=== PATIENT | male | born 1945 | race Caucasian/White ===

== ENCOUNTER 2016-06-14 10:28 | Inpatient (IN) | payer MEDICARE, OTHER ==
--- NOTE | ~2016-06-14 | CN ---
Consultation Report [facility] [address] [place]. [address] NAME: TARAN ADAMS JR : 45 STATUS : ADM IN PAT#: [id number] AGE: 70 ADM/REG DATE : 06/14/16 MR#: [id number] REPORT SERV DATE: 06/16/16 DICTATED BY: SAAD WOLF DATE: 06/16/16 REPORT STATUS : Draft TRANSCRIBED BY: MODL DATE: 06/16/16 CONSULTATION REPORT DATE OF CONSULTATION: 06/14/2016 REASON FOR CONSULTATION: Severe aortic stenosis, coronary artery disease, consideration for surgical therapy. CHIEF COMPLAINT: "I have valve problems and I felt bad yesterday." HISTORY OF PRESENT ILLNESS: This is a 70-year-old, very fit gentleman, who has known history of some aortic valve disease. He reports that he has known about a heart murmur for a long time. He has also prior history of stage 3 chronic kidney disease, followed by Dr. 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 On the day of admission, he reports that he awakened early that morning and felt unwell. He had some dizziness and while showering, he began to have some left shoulder and arm discomfort. This radiated into his chest and worsened overtime. He did not take anything for this. He did have associated shortness of breath, did not have any diaphoresis, nausea, or vomiting. EMS was activated and during transport, he was given nitroglycerin. He developed severe bradycardia and then asystole and was successfully resuscitated. He was taken urgently to the catheter finisher and inspector, and was found to have significant disease in the first diagonal of the LAD and also had mid LAD lesion of 45%. His circumflex showed ostial 40% lesion second obtuse marginal, which was small, showed 70% stenosis, and he had right PDA stenosis of 70%. At the time of his catheterization, the slip presser was unable to cross the aortic valve. His left ventricular function was mildly diminished with ejection fraction of 45%. His echocardiogram showed severe aortic stenosis and we were asked to see for provision of possible aortic valve replacement and bypass to the diagonal. PRIOR MEDICAL HISTORY: Significant for hypertension, hyperkalemia, stage 3 chronic kidney disease, cataracts, asthma, and hyperlipidemia. PRIOR SURGICAL HISTORY: Significant for excision of cataracts, bilateral rotator cuff repair, right elbow and left ankle surgeries as well as hip surgery. He has also had prior appendectomy. 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 ALLERGIES: HE IS LISTED NITROGLYCERIN AND DOG DANDER. MEDICATIONS: Losartan 100 mg p.o. daily, Zocor 40 mg p.o. at bedtime, coenzyme Q10 100 mg p.o. b.i.d., omega-3 630 mg 2 capsules p.o. b.i.d., glucosamine chondroitin twice daily, aspirin 325 mg p.o. at bedtime, supplemental testosterone injections weekly, Claritin 10 mg p.o. daily as needed, and Sigrid-C 500 mg p.o. b.i.d. Consultation Report [address] [place]. [address] NAME: TARAN ADAMS JR : 45 STATUS : ADM IN [facility]#: [id number] AGE: 70 ADM/REG DATE : 06/14/16 MR#: [id number] REPORT SERV DATE: 06/16/16 DICTATED BY: SAAD WOLF DATE: 06/16/16 REPORT STATUS : Draft TRANSCRIBED BY: DOE DATE: 06/16/16 REVIEW OF SYSTEMS: Essentially as above. FAMILY HISTORY: Significant for coronary artery disease in father and brother. Father had valvular disease as well. PHYSICAL EXAMINATION: GENERAL: He is a pleasant elderly white male, in no acute distress. VITAL SIGNS: Height is 180.34 cm. Weight 96 kg. Blood pressure 167/92, temperature 98.1, pulse 61 and regular, respirations 13, saturation 98% on room air. HEENT: Normocephalic, atraumatic. Pupils are equal, round, reactive to light and accommodation, sclerae clear, conjunctivae pink. No xanthelasma. Oral and buccal mucosa pink and moist and teeth is in good condition. Mallampati class 2 airway. NECK: Supple. No restricted range of motion. No carotid bruits to auscultation. No jugular venous distention. I do not palpate any lymphadenopathy. CHEST: Clear to auscultation. No use of accessory muscles. No chest wall tenderness. BREASTS: Not examined. CV: Regular rate and rhythm with aortic systolic murmur. He has palpable and symmetric central and peripheral pulses, no clubbing, cyanosis, or edema. ABDOMEN: Soft, nontender with normoactive bowel sounds. No hepatosplenomegaly. /RECTAL: Declined. MUSCULOSKELETAL: No kyphoscoliosis. No asymmetry. NEUROLOGIC: He is alert and oriented to day, date, place, and situation. Speech is clear, fluent, no focal neurologic deficits. Mood is appropriate. No tremors. SKIN, HAIR, AND NAILS: No lesions, masses, or rashes. He is tanned and has good hygiene. DATA: He has coronary arteriogram and echocardiogram, which I reviewed. His EKG shows sinus rhythm. Labs showed troponin I not elevated at 0.02. His CBC was unremarkable and BMP was remarkable for elevation of his creatinine of 1.61. IMPRESSION: Severe aortic stenosis and flow-limiting coronary artery disease in the first diagonal branch. We talked with the patient and his about possible coronary artery bypass grafting and aortic valve replacement. We talked about choice of valves between a tissue valve and mechanical valve and the patient prefers tissue valve. We talked about the operation, indications, benefits, and serious risks which include things like bleeding, need for blood or blood product transfusion and their attendant risks, damage to the kidneys including kidney failure and dialysis, damage to the liver, lungs, heart attack, stroke, abnormal heart rhythm, and even . The patient indicates his understanding. Using Society of Thoracic Surgeons' database for risk prediction, mortality risk was calculated at 2.295%, morbidity or mortality 18.255%, and this was discussed with the patient. Plan is for surgery on Thursday and the patient is agreeable to proceed. We appreciate the opportunity to participate in his care. DICTATED BY: Sha Fuentes N.P. Consultation Report [address] [place]. [address] NAME: BRYANTARAN KENYON WALSH : 45 STATUS : ADM IN [facility]#: [id number] AGE: 70 ADM/REG DATE : 06/14/16 MR#: [id number] REPORT SERV DATE: 06/16/16 DICTATED BY: SAAD WOLF DATE: 06/16/16 REPORT STATUS : Draft TRANSCRIBED BY: DOE DATE: 06/16/16 MSL/FERNL Saad Wolf M.D. / [id number] CC: Anahy Douglas Jr., M.D.
--- NOTE | ~2016-06-14 | HP ---
History And Physical [place] [id number] [facility] [place]. [address] NAME: TARAN ADAMS JR : 45 STATUS : ADM IN [facility]#: [id number] AGE: 70 ADM/REG DATE : 06/14/16 MR#: [id number] REPORT SERV DATE: 06/14/16 DICTATED BY: SEEMA AYALA JR. DATE: 06/14/16 REPORT STATUS : Draft TRANSCRIBED BY: DOE DATE: 06/14/16 DATE OF ADMISSION: 06/14/2016 CHIEF COMPLAINT: Chest pain and asystolic arrest. HISTORY OF PRESENT ILLNESS: Taran Adams is a 70-year-old white male, who is a patient Dr. Fischer. He has moderate calcific aortic stenosis, being followed medically. He has been in his usual state of health, exercising on an elliptical every morning. This morning, he was taking a shower when he had gradual onset of substernal chest pressure with shortness of breath. This was new, prompting an EMS call. The EMS gave a sublingual nitroglycerin en route. The patient developed asystole, requiring brief CPR. He then arose on his own without medical or mechanical intervention. The patient continues to have 1 or 2 out of 10 substernal chest pain. He had borderline ST elevation in 1 and aVL, not classic criteria for STEMI, but persistent symptoms. PAST MEDICAL HISTORY: Includes lung abscess 2-3 years ago, treated with antibiotics. He has a history of calcific aortic stenosis. He denies prior myocardial infarction, TIA or stroke. He has hypertension, mixed hyperlipidemia. ALLERGIES: INCLUDE A POSSIBLE INTOLERANCE TO NITROGLYCERIN NOTED ABOVE. CURRENT MEDICATIONS: Please see the home medication sheet, which was reviewed. SOCIAL HISTORY: The patient does not currently smoke, drink or use recreational drugs. FAMILY HISTORY: Negative for premature vascular events. REVIEW OF SYSTEMS: He denies recent fever or chills, bleeding diathesis, sudden weight gain or weight loss. Remainder as in HPI or negative. PHYSICAL EXAMINATION: PHYSICAL EXAMINATION: VITAL SIGNS: Blood pressure is 155/91, heart rate 61, and respirations 16. GENERAL: Anxious male, who is in no acute distress. HEENT: Anicteric, no scleral injection, no oral lesions. NECK: No JVD, supple, no bruits. LUNGS: Clear to auscultation. No hyperexpansion. CARDIOVASCULAR: Irregular rate and rhythm with 1 to 2 out of 6 systolic ejection murmur at the right upper sternal border. ABDOMEN: Soft, nontender. Normoactive bowel sounds, no hepatosplenomegaly. EXTREMITIES: No clubbing, cyanosis or edema. SKIN: No visible rashes. NEURO/PSY: Normal affect, alert and oriented x 3. History And Physical [address] [address] NAME: TARAN ADAMS JR : 45 STATUS : ADM IN [facility]#: [id number] AGE: 70 ADM/REG DATE : 06/14/16 MR#: [id number] REPORT SERV DATE: 06/14/16 DICTATED BY: SEEMA AYALA JR. DATE: 06/14/16 REPORT STATUS : Draft TRANSCRIBED BY: DOE DATE: 06/14/16 MEDICAL DECISION MAKIN. Chest pain. The patient is having persistent chest pain with an asystolic arrest post nitroglycerin. He has borderline ST elevation, not completely consistent with STEMI, but possibly concerning for injury pattern. Based upon his presentation of high risk, the risks and benefits of left heart catheterization, coronary angiography were explained, verbalized, and accepted. This is an emergency procedure. 2. Hypertension. We will adjust medicines as needed during this hospital stay. 3. Mixed hyperlipidemia. We will continue intensive statin therapy. 4. Aortic stenosis. We will check aortic valve gradients at the time of procedure. HADLEY/DOE Seema Ayala Jr., M.D. / [id number] CC: Evan Fischer M.D.
--- NOTE | ~2016-06-14 | OP ---
Record Of Operation [facility] [address] [place]. [address] NAME: TARAN ADAMS JR : 45 STATUS : ADM IN PAT#: [id number] AGE: 70 ADM/REG DATE : 06/14/16 MR#: [id number] REPORT SERV DATE: 06/29/16 DICTATED BY: SAI MCCLAIN DATE: 06/28/16 REPORT STATUS : Draft TRANSCRIBED BY: MODL DATE: 06/28/16 DATE OF PROCEDURE: 06/27/2016 PREOPERATIVE DIAGNOSIS: Acute kidney injury. POSTOPERATIVE DIAGNOSIS: Acute kidney injury. PROCEDURE: Right IJ PermCath. RN UNIT MANAGER: None. ANESTHESIA: MAC plus local. INDICATIONS: The patient is a 70-year-old gentleman who had cardiac surgery and has postoperative renal failure. He has been receiving dialysis via a left subclavian vein Vas- Cath. Thus, he was consented for intervention. DESCRIPTION OF PROCEDURE: After informed consent was obtained, the patient was taken to the operating room and placed in the supine position on the operating table. Monitored anesthesia was administered. The patient's right neck and chest were prepped and draped in the usual sterile fashion. Ultrasound-guided access was obtained to the right internal jugular vein. The ultrasound image was documented on the chart. I passed a wire centrally. I tunneled a 19-cm curved HemoSplit catheter from the right chest to the right neck. I inserted a peel-away sheath over the aforementioned wire using fluoroscopic guidance. I subsequently inserted the catheter into the peel-away sheath under fluoroscopy and peeled away the sheath. I confirmed that the catheter was not kinked and that it aspirated and flushed well. The right neck wound was closed. DIGITAL PRODUCT MANAGER/DOE Sai Mcclain M.D. / [id number] CC: Anahy Douglas Jr., M.D. Nathan Chamberlain, M.D.
--- NOTE | ~2016-06-14 | OP ---
Record Of Operation [facility] [address] [place]. [address] NAME: TARAN ADAMS JR : 45 STATUS : ADM IN PAT#: [id number] AGE: 70 ADM/REG DATE : 06/14/16 MR#: [id number] REPORT SERV DATE: 06/19/16 DICTATED BY: SAAD WOLF DATE: 06/18/16 REPORT STATUS : Draft TRANSCRIBED BY: MODL DATE: 06/18/16 DATE OF PROCEDURE: 06/18/2016 PREOPERATIVE DIAGNOSES: 1. Coronary artery disease with code ST-elevation myocardial infarction and angina. 2. Aortic valve stenosis. 3. Recent asystolic cardiac arrest with cardiopulmonary resuscitation. 4. Chronic kidney disease, stage III. 5. Hypertension. 6. Hyperlipidemia. POSTOPERATIVE DIAGNOSES: 1. Coronary artery disease with code ST-elevation myocardial infarction and angina. 2. Aortic valve stenosis. 3. Recent asystolic cardiac arrest with cardiopulmonary resuscitation. 4. Chronic kidney disease, stage III. 5. Hypertension. 6. Hyperlipidemia. PROCEDURE PERFORMED: 1. Urgent coronary artery bypass grafting x4, left internal mammary artery placed to left anterior descending, reverse saphenous vein graft placed to the first diagonal, reverse saphenous vein graft placed to the second obtuse marginal, reverse saphenous vein graft placed to the posterior descending artery. 2. Aortic valve replacement using a 27 mm pericardial valve (Magna Ease). 3. Placement of left subclavian vein. Dual lumen temporary hemodialysis catheter, percutaneous. 4. Endoscopic vein harvest, saphenous vein from the right leg. 5. Transesophageal echocardiography. SURGEON: Saad Wolf M.D. ASSISTANTS: Robert Bai, Shelia Cavazos, [facility], and Ashok Norwood. ANESTHESIA: General with Dr. Baljinder Feliz. INSTALLER METAL FLOORING: Marin Ayala M.D. INDICATIONS: This is a 70-year-old gentleman with a history of chronic kidney disease, who has known aortic valve stenosis and hypertension. He presented to [facility] after an episode of chest discomfort at home. En route, he was given nitroglycerin and had asystolic arrest with brief period of CPR and was successfully resuscitated. In the emergency room, he was diagnosed with a code STEMI and was still having angina when taken to the laborer tree tapping. There, he underwent the cardiac catheterization demonstrating significant three-vessel coronary artery disease. He also was found to have progression of aortic stenosis, and now severe aortic valve stenosis. Ventricular function was not assessed Record Of Operation [address] [address] NAME: TARAN ADAMS JR : 45 STATUS : ADM IN PAT#: [id number] AGE: 70 ADM/REG DATE : 06/14/16 MR#: [id number] REPORT SERV DATE: 06/19/16 DICTATED BY: SAAD WOLF DATE: 06/18/16 REPORT STATUS : Draft TRANSCRIBED BY: MODUlises DATE: 06/18/16 there, however, on echocardiography his ventricular function was preserved with an ejection fraction of greater than 50%. There was rather severe aortic valve stenosis. Valve area estimated I think to be less than 1 cm square. His aortic valve area was estimated at 0.75 cm square with a VTI ratio of 0.24. We were asked to see the patient possible urgent revascularization and aortic valve replacement. We discussed this operation with the patient and his family, and after lengthy discussion of the operations, indication, risks, and valve selection they wished to proceed. Predicted STS mortality of 2.3% morbidity, mortality of 18% were shared with the family. FINDINGS AT OPERATION: 1. Cross-clamp time of 123 minutes, total pump time 144 minutes. 2. The LAD was a 2 mm moderately diseased vessel. A 3 mm KEITH was anastomosed with good runoff. 3. The first diagonal was 2 mm moderately diseased. A 4.5 mm RSVG was anastomosed with good runoff. 4. The second obtuse marginal was 1.5 mm moderately diseased. A 4.5 mm RSVG was anastomosed with good runoff. 5. The posterior descending artery was 1.75 mm moderately diseased. A 4.5 mm RSVG was anastomosed with good runoff. 6. The vein quality was good and all grafts had good Doppler signal at the end of the case. 7. The aortic valve was bicuspid with very heavy calcification. There was fusion of the right and left coronary cusps and bulbous calcific disease extending to the annulus and into the myocardium around the right coronary cusp and onto the anterior leaflet of the mitral valve from the non and left coronary cusps and annulus. Coronary anatomy was normal. 8. The aortic valve was replaced using a 27 mm pericardial valve (Magna Ease). Eighteen Cor-Knots were utilized to secure the valve in place. 9. WOLF at the end of the operation demonstrated good ventricular function. Right ventricular contractility was estimated to be slightly reduced even preoperatively. The aortic valve prosthesis was well seated without perivalvular leak. There was mild mitral valve insufficiency. Pathologic specimens include aortic valve and calcifications. DESCRIPTION OF PROCEDURE: The patient was brought to the operating suite. General anesthesia was induced airway secured with an endotracheal tube. Lines secured by Anesthesia. Merchant catheter was placed. The patient's chest, abdomen, groin, and legs prepped with Hibiclens and ChloraPrep and draped with Ioban sterile sheets. Saphenous vein was harvested from the right leg using endoscopic technique. Briefly, the vein was cut directly down upon through a 2 cm incision placed at the medial aspect of the right knee. Then, using VasoView trocars, the vessel was dissected from the surrounding subcutaneous tissue and fat. The side branches were identified, ligated, divided with cautery. Once adequate length of vein had been dissected, a counter incision made up in the groin and in the lower leg where the vein was ligated, divided, and brought through the knee incision. The vein quality was good. The leg was made hemostatic and closed in layers with absorbable suture and skin closed in a subcuticular fashion. Record Of Operation [facility] [address] [facility] [place]. [address] NAME: TARAN ADAMS JR : 45 STATUS : ADM IN [facility]#: [id number] AGE: 70 ADM/REG DATE : 06/14/16 MR#: [id number] REPORT SERV DATE: 06/19/16 DICTATED BY: SAAD WOLF DATE: 06/18/16 REPORT STATUS : Draft TRANSCRIBED BY: MODL DATE: 06/18/16 WOLF probe was placed by Anesthesia and examination carried out as discussed above. Dr. Feliz and I discussed the findings of the aortic valve and absence of other surgically significant aortic valvular disease. A midline sternal incision made and the sternum opened with a saw. The left hemithorax was elevated and the endothoracic fascia was incised. Side branch of the HERACLIO were clipped and divided. Once the HERACLIO was completely dissected, the patient was anticoagulated with heparin and the chest tube placed in the left pleural cavity. The HERACLIO was clipped and divided distally. There was good flow through the HERACLIO and its pedicle was infiltrated with papaverine. Next, the Ryne retractor was placed in the pericardium opened from innominate vein. The diaphragm was T'd and tacked to sides of the chest wall. Cannulation pursestring sutures were placed and cannulation was carried out in routine manner. A retrograde cardioplegia cannula was placed in the coronary sinus. When all was in readiness, the patient was placed on cardiopulmonary bypass. The distal targets were marked out on the heart as described in the findings. Then, a heart support was placed. The aorta was crossclamped and initial dose cold blood cardioplegia solution was given in a combination of antegrade and retrograde fashion, then in a retrograde manner at 20 to 25-minute intervals during remainder of the crossclamp period. Following the first dose of cardioplegia, the heart was positioned for the PDA graft. Arteriotomy was made, the vein graft was trimmed and anastomosed it with 7-0 Prolene. The vein graft was measured to the right side of the ascending aorta where it was divided. We then positioned heart for the second obtuse marginal graft. Another arteriotomy was made. The vein graft was trimmed and anastomosed with 7-0 Prolene. This vein graft was measured back to the left side of the ascending aorta where it was divided. Next, another dose of cardioplegia was given. We then positioned the heart for the diagonal graft. Arteriotomy was made, and the vein graft was trimmed and anastomosed with 7-0 Prolene. This vein graft was measured back to the left side of the ascending aorta where it was divided. Then, the heart was positioned for the LAD graft. Arteriotomy was made in the mid vessel LAD. The HERACLIO was brought out of the left chest through a notch in the pericardium over the pulmonary artery. The HERACLIO was opened and anastomosed to the LAD with running suture of 8-0 Prolene. The endothoracic fascia was tacked to epicardium. Another dose of cardioplegia was given and the heart support was removed. We then turned our attention towards the aortic valve. An LV vent was then placed through the right superior pulmonary vein and directed into the left ventricle through the mitral valve and secured. A hockey-stick type aortotomy incision was made. The aortic valve was exposed. As discussed above, this was of a bicuspid valve with fusion of the right and left coronary cusps. There were heavily calcifications of the aortic valve leaflets and of the annulus. The right and left main coronary ostia were in normal anatomic position. We then excised the valve leaflets and debrided the annulus of all calcific material. Once this was completed, we irrigated the ascending aorta and left ventricle copiously with iced saline to remove any particulate matter. The valve was sized and a 27 mm pericardial valve was selected (Magna Ease). An interrupted horizontal mattress sutures of pledgeted 2-0 Tycron Record Of Operation [facility] [address] [facility] [place]. [address] NAME: TARAN ADAMS JR : 45 STATUS : ADM IN PAT#: [id number] AGE: 70 ADM/REG DATE : 06/14/16 MR#: [id number] REPORT SERV DATE: 06/19/16 DICTATED BY: SAAD WOLF DATE: 06/18/16 REPORT STATUS : Draft TRANSCRIBED BY: DOE DATE: 06/18/16 were placed circumferentially about the aortic valve annulus. Pledgets were on the ventricular side. The sutures were passed through the sewing cuff of the valve prosthesis. This was lowered into position and each of the sutures individually secured and divided using a Cor-Knot device. A total of 18 Cor-Knots were utilized. The valve appeared to be well seated without coronary obstruction. Warming was begun. The aortotomy incision was then closed in a two-layer fashion with running pledgeted suture of 5-0 Prolene. Next, proximal aortotomy incisions of 5 mm were made for each of the vein grafts. The proximal end of each vein graft was then anastomosed to these sites with running sutures of 6-0 Prolene. The patient was placed in Trendelenburg and a final dose of warm blood cardioplegia given in a retrograde fashion. Ventricular and atrial pacing wires were placed. Following the last dose cardioplegia and deairing of the aorta, the aortic cross clamp was removed. The distal and proximal anastomoses were inspected and made hemostatic. Doppler demonstrated good flow through the grafts. After short period of rest, low-dose milrinone was bolused and begun on a drip. Ventilation was begun. The heart was allowed to beat and was paced in AV sequential fashion at a rate of 80. When the heart demonstrated good contractility, it was allowed to fill and eject. De-airing was monitored with WOLF. When deairing was completed, the LV vent was removed and these pursestring sutures tied. The ascending aortic vent was likewise removed and these pursestring sutures tied and reinforced. The patient was then weaned from cardiopulmonary bypass with inotropic support. The venous cannulas were removed and these pursestring sutures tied. WOLF examination demonstrated good ventricular function. The aortic valve prosthesis was well seated without perivalvular leak. There was very minimal mitral valve insufficiency. Protamine was administered by Anesthesia and following a period of hemodynamic stability, the aortic cannula was removed and these pursestring sutures tied and reinforced. The patient continued to do well and chest was irrigated copiously with saline. Meticulous hemostasis was obtained. Hemasorb was placed along the cut edge of the sternum. Once hemostasis was assured, the pericardium was draped over the anterior surface of the heart and tacked into position. Doppler demonstrated good flow through the grafts following protamine administration. Then, chest tubes were placed and sternum reapproximated with eight sternal wires. The clavipectoral fascia and linea alba closed with #1 Stratafix as was the subcutaneous tissue. The skin was closed in a subcuticular fashion. Then, the left subclavian area was anesthetized with lidocaine. A needle was placed in the left subclavian vein and a guidewire placed through the needle into the right heart. This tract was dilated using a modified Seldinger technique. Then, a 14.5-Maltese dual-lumen temporary dialysis catheter placed in the left subclavian vein and secured to the skin. The catheter was flushed with heparinized saline. Record Of Operation [facility] [address] [facility] [place]. [address] NAME: TARAN ADAMS : 45 STATUS : ADM IN [facility]#: [id number] AGE: 70 ADM/REG DATE : 06/14/16 MR#: [id number] REPORT SERV DATE: 06/19/16 DICTATED BY: SAAD WOLF DATE: 06/18/16 REPORT STATUS : Draft TRANSCRIBED BY: MODL DATE: 06/18/16 The patient tolerated the procedure well. There were no complications. Sponge needle counts were correct. DISPOSITION: The patient was left intubated, sedated, and transported to the Intensive Care Unit in stable condition. JOE/DOE Saad Wolf M.D. / [id number] CC: Anahy Douglas Jr., MD
--- NOTE | ~2016-06-14 | DS ---
Discharge Summary [facility] [address] [place]. [address] NAME: TARAN ADAMS JR : 45 STATUS : DIS IN PAT#: [id number] AGE: 70 ADM/REG DATE : 06/14/16 MR#: [id number] REPORT SERV DATE: 07/09/16 DICTATED BY: MARIN AYALA JR. DATE: 07/09/16 REPORT STATUS : Draft TRANSCRIBED BY: DOE DATE: 07/09/16 Data Collection from hospitalization DISCHARGE DIAGNOSES: 1. Coronary artery disease with code ST-elevation myocardial infarction and angina, status post coronary artery bypass grafting. 2. End-stage renal disease, on hemodialysis. 3. Hypertension. 4. Hyperlipidemia. 5. Asthma. 6. History of head and neck squamous cell carcinoma. 7. EtOH abuse. 8. Arthritis. 9. Aortic stenosis. 10.Cataracts. 11.Asystolic arrest. CONSULTATIONS: 1. Arturo Espinoza M.D. 2. Anastacio Wolf M.D. 3. Sai Mcclain M.D. PROCEDURES PERFORMED: 1. Catheterization and percutaneous coronary intervention on 06/14/2016. 2. Urgent coronary artery bypass grafting x4 with left internal mammary artery to the left anterior descending artery, reverse saphenous vein graft placed to the first diagonal, reverse saphenous vein graft placed to the second obtuse marginal, reverse saphenous vein graft placed to the posterior descending artery; aortic valve replacement using a 27 mm pericardial valve (Magna Ease); placement of left subclavian vein dual-lumen temporary hemodialysis catheter - percutaneous; endoscopic vein harvest of the saphenous vein from the right leg; transesophageal echocardiography on 06/18/2016. 3. Right IJ PermCath placement on 06/27/2016. 4. Carotid blood flow study on 06/18/2016. 5. Dialysis catheter check on 06/20/2016. PATHOLOGY: Aortic valve - calcific aortic valvular disease (no vegetations identified). MEDICATIONS: Cordarone 200 mg daily, Viraj Aspirin 81 mg daily, Lipitor 40 mg at bedtime, Coreg 6.25 mg twice a day, CoQ10 100 mg twice a day, MSM capsule 500 mg twice a day, glucosamine 1000 mg twice a day, Claritin 10 mg daily as needed, saw palmetto one capsule twice a day, omega-3 two capsules twice a day, chondroitin 500 mg twice a day, Sigrid-C 500 mg twice a day, and Coumadin 5 mg daily. CONDITION AT DISCHARGE: Stable. DISPOSITION: The patient was discharged home on a low-sodium, low-cholesterol, cardiac diet with activities as instructed. He would follow up with Sha Fuentes on 07/31/[address] Evan Fischer on 07/28/2016. He would follow up with Dr. Jimi Higuera as Discharge Summary [address] [address] NAME: TARAN ADAMS JR : 45 STATUS : DIS IN PAT#: [id number] AGE: 70 ADM/REG DATE : 06/14/16 MR#: [id number] REPORT SERV DATE: 07/09/16 DICTATED BY: MARIN AYALA JR. DATE: 07/09/16 REPORT STATUS : Draft TRANSCRIBED BY: DOE DATE: 07/09/16 instructed. He would follow up with Dr. Taran Dozier on 07/10/2016. He would follow up at the [facility] on 07/04/2016. He would follow up at [facility] on 07/02/2016. HOSPITAL COURSE: A 70-year-old man who is a patient of Dr. Fischer. He has moderate calcific aortic stenosis and is being followed medically. He had been in his usual state of health, exercising on an elliptical every morning. On the morning of this admission, he was taking a shower when he had the gradual onset of substernal chest pressure with shortness of breath. This was new and EMS was called. EMS gave a sublingual nitroglycerin en route. He developed asystole and required brief CPR. He then aroused on his own without medical or mechanical intervention. He continued to have 1 or 2/10 substernal chest pain. He had borderline ST elevation in I and aVL, which was not classic criteria for STEMI, but persistent symptoms. The patient had borderline ST elevation that was not completely consistent with STEMI, but possibly concerning for an injury pattern. It was felt that he would need to undergo cardiac catheterization emergently. He was admitted to the hospital at this time for further evaluation and treatment. Upon admission, blood pressure medications would be adjusted as needed. His intensive statin therapy was continued. We were going to check his aortic valve gradients at the time of procedure for aortic stenosis. He was taken to the cardiac concrete mixing plant laborer where he underwent the above-mentioned procedure. He tolerated this well, and there were no complications. He was seen in consultation by Dr. Artuor Espinoza regarding his chronic kidney disease. The patient has a history of stage III chronic kidney disease. Creatinine level was 1.91. Gentle IV fluids were being given. A.m. labs would be obtained. He was also seen by Dr. Anastacio Wolf regarding severe aortic stenosis and coronary artery disease and consideration for surgical therapy. Cardiac catheterization had revealed significant disease in the first diagonal of the LAD and also mid LAD lesion of 45%. His circumflex showed ostial 40% lesion, second obtuse marginal which was small and showed 70% stenosis, and he had right PDA stenosis of 70%. At the time of his catheterization, we were unable to cross the aortic valve. His left ventricular function was mildly diminished with the ejection fraction of 45%. Echocardiogram showed severe aortic stenosis. It was felt that the patient would need to undergo possible aortic valve replacement and coronary artery bypass grafting. The following day, urinalysis was going to be checked. He had no chest pain or shortness of breath. His catheterization site was stable. Low-dose amlodipine was added for his hypertension. On 06/16/2016, he had no chest pain or shortness of breath. He was in a normal sinus rhythm. IV heparin was being given. Creatinine level remained stable at 1.88. Plans were being made to proceed with surgical intervention. On 06/18/2016, he was taken to the operating room by Dr. Wolf where he underwent the above-mentioned procedure. He had undergone a carotid blood flow study earlier in the day. The patient tolerated this procedure well, and there were no complications. On postop day #1, his lungs were clear. Chest x-ray showed bilateral lung interstitial edema as well as a questionable tiny left apical pneumothorax. His incisions looked okay. He had no edema. He is going to remain in the ICU at this time. White blood cell count was 21. Medial and left pleural chest tubes were removed. CRRT was going to began. Creatinine had increased to 2.99. He had been given Phenergan and Zofran for his nausea. Bumex drip had been started. On 06/20/2016, he did have some pain in his left chest with deep inspiration. He had a shallow inspiratory effort. He remained in a normal sinus rhythm. He had minimal urine Discharge Summary [facility] [address] [facility] [place]. [address] NAME: TARAN ADAMS JR : 45 STATUS : DIS IN PAT#: [id number] AGE: 70 ADM/REG DATE : 06/14/16 MR#: [id number] REPORT SERV DATE: 07/09/16 DICTATED BY: MARIN AYALA JR. DATE: 07/09/16 REPORT STATUS : Draft TRANSCRIBED BY: MODUlises DATE: 07/09/16 output with Bumex. He had trace edema. White count was 19.9. He was now off pressors. His dialysis catheter that had been placed was checked and was in good position. The patient had been placed on milrinone. CRRT therapy was begun. He was now off Levophed. BiPAP would be used as needed. Supportive care continued. On 06/22/2016, he developed brief atrial fibrillation, but went back into a sinus rhythm. The next day, he did develop some constipation. Chest x-ray showed improvement. There was no significant effusion. There was no pneumothorax. He had increasing urine output. He did have some sternal pain. Aspirin, Coreg, and atorvastatin were continued. IV Bumex continued. He was going to be transitioned to hemodialysis as needed. On 06/23/2016, he was in a normal sinus rhythm. He had no chest pain. He was in no distress. He is now off CRRT. Chest x-ray showed increased left base atelectasis. On 06/24/2016, the patient was nonoliguric with IV Bumex. Vas-Cath remained in place. He was very fatigued. He had some issues with nitroglycerin ointment. We were going to marcia this as intolerant on the chart. It was felt that he would need PermCath insertion. Warfarin was held. He had no significant edema. The patient said he felt depressed about the hemodialysis. On 06/27/2016, he was in no acute distress. He was up sitting in a chair. He was seen by Dr. Sai Mcclain. The patient had been receiving dialysis via a left subclavian vein Vas-Cath. It was felt that he needed right IJ PermCath placement. He agreed to proceed. He was taken to the operating room by Dr. Mcclain where he underwent the above-mentioned procedure. He tolerated this well, and there were no complications. On 06/28/2016, arrangements were made for outpatient hemodialysis to be performed. He said he had a rough night. He had been impacted and constipated and then developed loose stools. His incisions looked okay. Over the next couple of days, discharge planning was performed. He began to feel better. He was up and around. INR level was 1.8. He was in a sinus rhythm at this time. PermCath was stable. On 06/30/2016, hemodialysis therapy was performed. His INR level was 2.1. He was in no acute distress. Discharge instructions were given. Due to his improved and stable condition, he was discharged home with the above-stated instructions. Information collected by: Cielo Cobb I submit the above information as my discharge summary. DEV/DOE Marin Ayala Jr., M.D. / [id number] CC: Anahy Douglas Jr., M.D. Sachin V Phade, M.D. Stuart G Ginther, M.D. James Zellner, M.D.
--- NOTE | ~2016-06-14 | CN ---
Consultation Report [facility] [address] [place]. [address] NAME: TARAN ADAMS JR : 45 STATUS : ADM IN PAT#: [id number] AGE: 70 ADM/REG DATE : 06/14/16 MR#: [id number] REPORT SERV DATE: 06/15/16 DICTATED BY: ARTURO ESPINOZA DATE: 06/14/16 REPORT STATUS : Draft TRANSCRIBED BY: DOE DATE: 06/14/16 NEPHROLOGY CONSULT. DATE OF CONSULTATION: CHIEF COMPLAINT: CKD. HISTORY OF PRESENT ILLNESS: The patient is a 70-year-old gentleman with past medical history stage III CKD (Dr. Higuera, creatinine 2.0 on 02/2016), moderate calcified aortic stenosis, hypertension, presented with acute onset of substernal chest pain and shortness of breath. En route, EMS gave him nitroglycerin. He went asystole and had brief CPR. He was evaluated by Dr. Ayala and found to have STEMI with class 4 angina. He was emergently taken to the clinical laboratory aides teacher. Volume contrast is not known to me at this time. He was found to have ostial 20% lesion at LMCA of 4 mm in length. The first diagonal of the LAD showed an ostial 80% stenosis of 8 mm in length. He was also noted to have a mid LAD lesion of 45%. Left circumflex showed ostial lesion of 40%. The second obtuse marginal showed a 70% stenosis of 4 mm in length. The mid circumflex was 30%. The RCA had a distal subsection of 40% stenosis in the proximal subsection stenosis in the right PDA of 70%. Repeat echocardiogram was completed, results not known to me at this time, but he did have a known history of moderate calcified aortic stenosis by echocardiogram in 01/2016. PAST MEDICAL HISTORY/PAST SURGICAL HISTORY: Moderate calcified aortic stenosis, hypertension, hyperkalemia, stage III CKD with creatinine 2.0. SOCIAL HISTORY: . No tobacco, alcohol, or drugs. FAMILY MEDICAL HISTORY: No known kidney disease. REVIEW OF SYSTEMS: Complete review of systems done negative, otherwise stated in HPI. ALLERGIES: NOW TO NITROGLYCERIN SECONDARY TO ASYSTOLE. HOME MEDICATIONS: Reviewed. Please see MAR. Current medications include Cozaar 50 mg daily, Zocor 40 mg daily, Co Q enzyme 10 mg, aspirin 325 mg, atropine p.r.n. PHYSICAL EXAMINATION: VITAL SIGNS: Temperature is 98.2, pulse is 63, blood pressure is 130/77, 96% on 2 L. GENERAL: He is in no apparent distress. He answers questions appropriately. NEUROLOGIC: He is alert and oriented x3. Gross motor intact. PSYCH: Appropriate, cooperative. HEENT: Normocephalic. No scleral icterus. NECK: No JVD. Trachea midline. CARDIOVASCULAR: Regular rate and rhythm. No gallops, rubs appreciated, but noted to have Consultation Report [address] [place]. [address] NAME: TARAN ADAMS JR : 45 STATUS : ADM IN PAT#: [id number] AGE: 70 ADM/REG DATE : 06/14/16 MR#: [id number] REPORT SERV DATE: 06/15/16 DICTATED BY: ARTURO ESPINOZA DATE: 06/14/16 REPORT STATUS : Draft TRANSCRIBED BY: MODL DATE: 06/14/16 systolic murmur at left right upper sternal border, left lower sternal border, and apex. ABDOMEN: Soft, nontender, nondistended. Positive bowel sounds. EXTREMITIES: No peripheral edema. NECK: Trachea is midline. No lymphadenopathy. SKIN: No petechiae or purpura. VASCULAR: +2 radial and dorsal pedal pulses bilaterally. LABORATORY DATA: Sodium is 144, potassium 4.6, chloride 116, CO2 is 25, BUN 29, creatinine is 1.91, glucose is 16. White blood cells 6.4, hemoglobin is 13.6, platelets are 254. Echocardiogram is pending. ASSESSMENT: 1. ST-segment elevation myocardial infarction with asystole, status post nitroglycerin. 2. Multivessel disease by cardiac cath. 3. Calcified aortic stenosis. 4. Stage III chronic kidney disease, baseline creatinine 2.0 in 02/2016. Office labs were not available at the time of this dictation. PLAN: 1. Gentle IV fluids. 2. A.m. labs. 3. Possibility of CABG, aortic valve replacement in the future. Cardiovascular Thoracic Surgery has been consulted. (Dr. Wolf). Note that the patient may have an elevated creatinine tomorrow in associated with his asystole event in transport in the setting of STEMI. He also received some contrast. Family updated at bedside. SGG/MODL Arturo Espinoza M.D. / [id number] CC: Marin Ayala Jr., M.D.
[~2016-06-14 10:28] MED LIST: COQ10100 MG PO; COSAMIN DS1 TAB PO; COZAAR100 MG PO; DIOV160 PO; DIOV80 PO; FLAXSEED OIL1000 MG PO; IBU400 PO; LOP25 PO; M-CLEAR WC PO; MSM500 MG PO; MULTIPLE VIT PO; PROMEGA PO; VENTOLIN HFA INH; VIB100 PO; VITC500 PO; ZOCOR40 PO; [UNRECOGNIZED DRUG - OTHER]
[2016-06-14] MEDS ORDERED: CO Q-10100 MG PO (10:37)
[2016-06-14] MEDS ORDERED: COZAAR100 MG PO (10:37)
[2016-06-14] MEDS ORDERED: ZOCOR40 PO (10:37)
[2016-06-14] MEDS ORDERED: GLUCOSAMINEPO PO (10:38)
[2016-06-14] MEDS ORDERED: OMEGA PO (10:38)
[2016-06-14] MEDS ORDERED: CHONDROITIN PO (10:38)
[2016-06-14] MEDS ORDERED: MSM500 MG PO (10:38)
[2016-06-14] MEDS ORDERED: ASABAYER PO (10:39)
[2016-06-14] MEDS ORDERED: CLARIT10 PO (10:39)
[2016-06-14] MEDS ORDERED: ESTER C 500 MG PO (10:39)
[2016-06-14] MEDS ORDERED: SAW PALMETT2 PO (10:39)
[2016-06-14] MEDS ORDERED: TESTOSTERONE IJ (10:40)
[2016-06-14 10:53] LABS: BASOPHILS 0.5 %; BASOPHILS ABSOLUTE 0.03 10/3/uL (0.0-0.16); EOSINOPHILS 8.8 %; EOSINOPHILS ABSOLUTE 0.56 10/3/uL (0.0-0.53); HEMATOCRIT 41.9 % (40.0-51.0); HEMOGLOBIN 13.6 g/dL (13.6-17.8); IMMATURE GRANULOCYTES 0.2 %; IMMATURE GRANULOCYTES ABSOLUTE 0.01 10/3/uL (0.0-0.11); LYMPHOCYTES 29.8 %; LYMPHOCYTES ABSOLUTE 1.89 10/3/uL (0.67-4.30); MEAN CORPUS HGB CONC 32.5 g/dL (32.0-36.0); MEAN CORPUSCULAR HEMOGLOB 28.1 pg (26.0-34.0); MONOCYTES ABSOLUTE 0.51 10/3/uL (0.21-1.20); NEUTROPHILS 52.7 %; NEUTROPHILS ABSOLUTE 3.35 10/3/uL (2.02-8.40); RBC DISTRIBUTION WIDTH 14.9 % (12.0-16.0); RED CELL COUNT 4.84 10/6/uL (4.7-6.1)
[2016-06-14 10:54] LABS: MANUAL DIFF NO %; MEAN CORPUSCULAR VOLUME 86.6 fL (80-100); PLATELET COUNT 254 10/3/uL (150-400); WHITE BLOOD CELLS 6.4 10/3/uL (4.5-10.5)
[2016-06-14 11:01] LABS: INTERNATIONAL NORMAL RATI 1.1 UNITS (-); PARTIAL THROMBO TIME 24.6 SEC (22.5-37.2); PROTIME (NOT ORD) 13.6 SEC (12.0-14.5)
[2016-06-14 11:09] LABS: CALCIUM, SERUM 8.5 MG/DL (8.5-10.4); CHEST PAIN PROFILE TAT 0 Hrs 22 Mins; CHLORIDE, SERUM 110 MMOL/L (96-112); CO2 (CARBON DIOXIDE) 25 MMOL/L (24-34); CREATININE 1.91 MG/DL (0.70-1.30); GFR AFRICAN AMERICAN 40 ML/MIN (>=60); GFR NON AFRICAN AMERICAN 35 ML/MIN (>=60); GLUCOSE, SERUM 111 MG/DL (60-99); POTASSIUM, SERUM 4.6 MMOL/L (3.5-5.3); SODIUM, SERUM 144 MMOL/L (135-148); TROPONIN I <0.02 NG/ML (<0.05)
[2016-06-14 11:13] LABS: BUN (BLOOD UREA NITROGEN) 29 MG/DL (6-23)
[2016-06-14 14:28] LABS: CPK 73 U/L (0-200)
[2016-06-14 14:29] LABS: CK-MB 1.6 NG/ML
[2016-06-14 20:00] LABS: CK-MB 6.2 NG/ML
[2016-06-14 20:01] LABS: CKMB INDEX (NOT ORD) 6.4
[2016-06-15 01:54] LABS: BASOPHILS 0.2 %; BASOPHILS ABSOLUTE 0.02 10/3/uL (0.0-0.16); EOSINOPHILS 4.7 %; EOSINOPHILS ABSOLUTE 0.39 10/3/uL (0.0-0.53); HEMATOCRIT 41.1 % (40.0-51.0); HEMOGLOBIN 13.7 g/dL (13.6-17.8); IMMATURE GRANULOCYTES 0.2 %; IMMATURE GRANULOCYTES ABSOLUTE 0.02 10/3/uL (0.0-0.11); LYMPHOCYTES 18.9 %; LYMPHOCYTES ABSOLUTE 1.55 10/3/uL (0.67-4.30); MEAN CORPUS HGB CONC 33.3 g/dL (32.0-36.0); MEAN CORPUSCULAR HEMOGLOB 29.1 pg (26.0-34.0); MEAN CORPUSCULAR VOLUME 87.4 fL (80-100); MEAN PLATELET VOLUME 9.1 fL (9.2-13.0); MONOCYTES 9.1 %; MONOCYTES ABSOLUTE 0.75 10/3/uL (0.21-1.20); NEUTROPHILS 66.9 %; NEUTROPHILS ABSOLUTE 5.49 10/3/uL (2.02-8.40); PLATELET COUNT 249 10/3/uL (150-400); RBC DISTRIBUTION WIDTH 14.8 % (12.0-16.0); WHITE BLOOD CELLS 8.2 10/3/uL (4.5-10.5)
[2016-06-15 01:55] LABS: MANUAL DIFF NO %
[2016-06-15 02:11] LABS: CALCIUM, SERUM 7.6 MG/DL (8.5-10.4); CHLORIDE, SERUM 111 MMOL/L (96-112); CK-MB 17.6 NG/ML; CO2 (CARBON DIOXIDE) 22 MMOL/L (24-34); CREATININE 1.61 MG/DL (0.70-1.30); GFR AFRICAN AMERICAN 49 ML/MIN (>=60); GFR NON AFRICAN AMERICAN 43 ML/MIN (>=60); GLUCOSE, SERUM 90 MG/DL (60-99); POTASSIUM, SERUM 4.1 MMOL/L (3.5-5.3); SODIUM, SERUM 144 MMOL/L (135-148)
[2016-06-15 02:17] LABS: BUN (BLOOD UREA NITROGEN) 24 MG/DL (6-23); CKMB INDEX (NOT ORD) 10.3; CPK 171 U/L (0-200)
[2016-06-15 10:34] LABS: ASCORBIC ACID (UR NOT ORDER) 20 (NEG); BILIRUBIN, URINE NEGATIVE (NEG); KETONE, URINE TRACE MG/DL (NEG); LEUKOCYTE ESTERASE(NOT OR NEG (NEG); WBC (NOT ORDERED) (RFLEX) < 1 (0-5)
[2016-06-16 04:56] LABS: BASOPHILS 0.2 %; BASOPHILS ABSOLUTE 0.02 10/3/uL (0.0-0.16); HEMOGLOBIN 14.3 g/dL (13.6-17.8); IMMATURE GRANULOCYTES 0.2 %; IMMATURE GRANULOCYTES ABSOLUTE 0.02 10/3/uL (0.0-0.11); LYMPHOCYTES 17.8 %; LYMPHOCYTES ABSOLUTE 1.48 10/3/uL (0.67-4.30); MEAN CORPUS HGB CONC 33.3 g/dL (32.0-36.0); MEAN CORPUSCULAR HEMOGLOB 29.1 pg (26.0-34.0); MEAN CORPUSCULAR VOLUME 87.4 fL (80-100); MEAN PLATELET VOLUME 9.4 fL (9.2-13.0); MONOCYTES 13.1 %; MONOCYTES ABSOLUTE 1.09 10/3/uL (0.21-1.20); NEUTROPHILS 62.7 %; NEUTROPHILS ABSOLUTE 5.19 10/3/uL (2.02-8.40); PLATELET COUNT 260 10/3/uL (150-400); RBC DISTRIBUTION WIDTH 14.8 % (12.0-16.0); RED CELL COUNT 4.92 10/6/uL (4.7-6.1); WHITE BLOOD CELLS 8.3 10/3/uL (4.5-10.5)
[2016-06-16 05:05] LABS: MANUAL DIFF NO %
[2016-06-16 05:10] LABS: BUN (BLOOD UREA NITROGEN) 24 MG/DL (6-23); CALCIUM, SERUM 8.2 MG/DL (8.5-10.4); CHLORIDE, SERUM 109 MMOL/L (96-112); CO2 (CARBON DIOXIDE) 23 MMOL/L (24-34); CREATININE 1.88 MG/DL (0.70-1.30); GFR AFRICAN AMERICAN 41 ML/MIN (>=60); GFR NON AFRICAN AMERICAN 35 ML/MIN (>=60); GLUCOSE, SERUM 91 MG/DL (60-99); PHOSPHORUS, SERUM 2.6 MG/DL (2.5-4.5); POTASSIUM, SERUM 4.7 MMOL/L (3.5-5.3); SODIUM, SERUM 141 MMOL/L (135-148)
[2016-06-17 08:13] LABS: HEMOGLOBIN 14.5 g/dL (13.6-17.8); MEAN CORPUS HGB CONC 32.2 g/dL (32.0-36.0); MEAN PLATELET VOLUME 9.2 fL (9.2-13.0); PLATELET COUNT 265 10/3/uL (150-400); RBC DISTRIBUTION WIDTH 15.1 % (12.0-16.0); RED CELL COUNT 5.17 10/6/uL (4.7-6.1); WHITE BLOOD CELLS 8.6 10/3/uL (4.5-10.5)
[2016-06-17 08:20] LABS: MANUAL DIFF YES %
[2016-06-17 08:26] LABS: INTERNATIONAL NORMAL RATI 1.1 UNITS (-)
[2016-06-17 08:33] LABS: A/G RATIO 0.9 (0.7-1.9); ALBUMIN 3.3 G/DL (3.5-5.0); ALKALINE PHOSPHATASE 49 U/L (45-117); BUN (BLOOD UREA NITROGEN) 20 MG/DL (6-23); CALCIUM, SERUM 8.2 MG/DL (8.5-10.4); CHLORIDE, SERUM 107 MMOL/L (96-112); CO2 (CARBON DIOXIDE) 26 MMOL/L (24-34); CREATININE 1.85 MG/DL (0.70-1.30); GFR AFRICAN AMERICAN 42 ML/MIN (>=60); GFR NON AFRICAN AMERICAN 36 ML/MIN (>=60); GLOBULIN 3.7 G/DL (2.5-4.1); GLUCOSE, SERUM 91 MG/DL (60-99); PHOSPHORUS, SERUM 3.2 MG/DL (2.5-4.5); POTASSIUM, SERUM 4.2 MMOL/L (3.5-5.3); SGOT(AST) 22 U/L (5-40); SGPT(ALT) 23 U/L (5-65); SODIUM, SERUM 143 MMOL/L (135-148); TOTAL BILIRUBIN 0.7 MG/DL (0-1.2)
[2016-06-18 06:21] LABS: INTERNATIONAL NORMAL RATI 1.1 UNITS (-); PROTIME (NOT ORD) 14.2 SEC (12.0-14.5)
[2016-06-18 06:23] LABS: BASOPHILS 0.4 %; BASOPHILS ABSOLUTE 0.03 10/3/uL (0.0-0.16); EOSINOPHILS 7.2 %; EOSINOPHILS ABSOLUTE 0.58 10/3/uL (0.0-0.53); HEMATOCRIT 41.4 % (40.0-51.0); HEMOGLOBIN 13.6 g/dL (13.6-17.8); IMMATURE GRANULOCYTES 0.2 %; IMMATURE GRANULOCYTES ABSOLUTE 0.02 10/3/uL (0.0-0.11); LYMPHOCYTES 20.3 %; LYMPHOCYTES ABSOLUTE 1.65 10/3/uL (0.67-4.30); MEAN CORPUS HGB CONC 32.9 g/dL (32.0-36.0); MEAN CORPUSCULAR HEMOGLOB 29.1 pg (26.0-34.0); MEAN CORPUSCULAR VOLUME 88.7 fL (80-100); MEAN PLATELET VOLUME 9.2 fL (9.2-13.0); MONOCYTES 10.4 %; MONOCYTES ABSOLUTE 0.84 10/3/uL (0.21-1.20); NEUTROPHILS 61.5 %; NEUTROPHILS ABSOLUTE 4.99 10/3/uL (2.02-8.40); PARTIAL THROMBO TIME 90.7 SEC (22.5-37.2); PLATELET COUNT 241 10/3/uL (150-400); RBC DISTRIBUTION WIDTH 15.1 % (12.0-16.0); RED CELL COUNT 4.67 10/6/uL (4.7-6.1); WHITE BLOOD CELLS 8.1 10/3/uL (4.5-10.5)
[2016-06-18 06:27] LABS: MANUAL DIFF NO %
[2016-06-18 06:46] LABS: ALBUMIN 2.9 G/DL (3.5-5.0); BUN (BLOOD UREA NITROGEN) 21 MG/DL (6-23); CALCIUM, SERUM 7.8 MG/DL (8.5-10.4); CHLORIDE, SERUM 111 MMOL/L (96-112); CREATININE 2.02 MG/DL (0.70-1.30); GFR AFRICAN AMERICAN 38 ML/MIN (>=60); GFR NON AFRICAN AMERICAN 32 ML/MIN (>=60); GLUCOSE, SERUM 98 MG/DL (60-99); PHOSPHORUS, SERUM 3.5 MG/DL (2.5-4.5); POTASSIUM, SERUM 4.3 MMOL/L (3.5-5.3); SODIUM, SERUM 143 MMOL/L (135-148)
[2016-06-18 06:47] LABS: CO2 (CARBON DIOXIDE) 21 MMOL/L (24-34)
[2016-06-18 17:09] LABS: BE (BASE EXCESS) -5.2 MEQ/L (0 +/- 2.5); CARBOXYHEMOGLOBIN 0.3 % (0-3); HCO3 (ACTUAL BICARBONATE) 19.7 MEQ/L (23-27); HEMOBLOGIN CONTENT 14.7 G/DL (14-18); INSTRUMENT SERIAL # 11843; METHEMOGLOBIN 0.6 % (0-3); MODE SIMV; O2 CONTENT 20.7 VOL% (18-24); OPERATOR ID 18642; PCO2 (CO2 TENSION) 36 MMHG (35-45); PO2 (O2 TENSION) 203 MMHG (79-93); PRESSURE SUPPORT 0 cm.H2O; SAMPLE Arterial; TIDAL VOLUME 700 ML; pH 7.35 (7.37-7.43)
[2016-06-18 17:40] LABS: HEMOGLOBIN 13.8 g/dL (13.6-17.8); PLATELET COUNT 180 10/3/uL (150-400)
[2016-06-18 17:46] LABS: INTERNATIONAL NORMAL RATI 1.4 UNITS (-); PARTIAL THROMBO TIME 38.4 SEC (22.5-37.2)
[2016-06-18 17:50] LABS: BUN (BLOOD UREA NITROGEN) 21 MG/DL (6-23); CHLORIDE, SERUM 113 MMOL/L (96-112); CO2 (CARBON DIOXIDE) 22 MMOL/L (24-34); CREATININE 2.25 MG/DL (0.70-1.30); GFR AFRICAN AMERICAN 33 ML/MIN (>=60); GFR NON AFRICAN AMERICAN 28 ML/MIN (>=60); GLUCOSE, SERUM 98 MG/DL (60-99); POTASSIUM, SERUM 3.6 MMOL/L (3.5-5.3); PROTIME (NOT ORD) 16.9 SEC (12.0-14.5); SODIUM, SERUM 146 MMOL/L (135-148)
[2016-06-18 17:51] LABS: CALCIUM, SERUM 8.9 MG/DL (8.5-10.4)
[2016-06-18 21:05] LABS: BE (BASE EXCESS) -11.4 MEQ/L (0 +/- 2.5); CARBOXYHEMOGLOBIN 0.4 % (0-3); DEVICE NC; HCO3 (ACTUAL BICARBONATE) 13.7 MEQ/L (23-27); INSTRUMENT SERIAL # 11843; METHEMOGLOBIN 0.5 % (0-3); O2 CONTENT 19.8 VOL% (18-24); OPERATOR ID 13744; PCO2 (CO2 TENSION) 30 MMHG (35-45); PO2 (O2 TENSION) 88 MMHG (79-93); SAMPLE Arterial; pH 7.29 (7.37-7.43)
[2016-06-18 22:43] LABS: HEMATOCRIT 40.6 % (40.0-51.0); HEMOGLOBIN 13.6 g/dL (13.6-17.8)
[2016-06-18 22:54] LABS: BUN (BLOOD UREA NITROGEN) 26 MG/DL (6-23); CALCIUM, SERUM 8.3 MG/DL (8.5-10.4); CHLORIDE, SERUM 111 MMOL/L (96-112); CO2 (CARBON DIOXIDE) 22 MMOL/L (24-34); CREATININE 2.51 MG/DL (0.70-1.30); GFR AFRICAN AMERICAN 29 ML/MIN (>=60); GFR NON AFRICAN AMERICAN 25 ML/MIN (>=60); GLUCOSE, SERUM 154 MG/DL (60-99); POTASSIUM, SERUM 4.2 MMOL/L (3.5-5.3); SODIUM, SERUM 145 MMOL/L (135-148)
[2016-06-19 03:46] LABS: BASOPHILS 0 %; BASOPHILS ABSOLUTE 0.01 10/3/uL (0.0-0.16); EOSINOPHILS 0 %; HEMATOCRIT 38.3 % (40.0-51.0); HEMOGLOBIN 12.6 g/dL (13.6-17.8); IMMATURE GRANULOCYTES 0.2 %; IMMATURE GRANULOCYTES ABSOLUTE 0.05 10/3/uL (0.0-0.11); LYMPHOCYTES 3.6 %; LYMPHOCYTES ABSOLUTE 0.76 10/3/uL (0.67-4.30); MEAN CORPUS HGB CONC 32.9 g/dL (32.0-36.0); MEAN CORPUSCULAR HEMOGLOB 28.1 pg (26.0-34.0); MEAN PLATELET VOLUME 10.1 fL (9.2-13.0); MONOCYTES 6.4 %; MONOCYTES ABSOLUTE 1.34 10/3/uL (0.21-1.20); NEUTROPHILS 89.8 %; NEUTROPHILS ABSOLUTE 18.83 10/3/uL (2.02-8.40); PLATELET COUNT 212 10/3/uL (150-400); RBC DISTRIBUTION WIDTH 14.4 % (12.0-16.0); RED CELL COUNT 4.48 10/6/uL (4.7-6.1)
[2016-06-19 03:48] LABS: MANUAL DIFF NO %; MEAN CORPUSCULAR VOLUME 85.5 fL (80-100)
[2016-06-19 04:07] LABS: ALBUMIN 3.2 G/DL (3.5-5.0); BUN (BLOOD UREA NITROGEN) 29 MG/DL (6-23); CHLORIDE, SERUM 111 MMOL/L (96-112); CO2 (CARBON DIOXIDE) 23 MMOL/L (24-34); CREATININE 2.99 MG/DL (0.70-1.30); GFR AFRICAN AMERICAN 23 ML/MIN (>=60); GFR NON AFRICAN AMERICAN 20 ML/MIN (>=60); GLUCOSE, SERUM 134 MG/DL (60-99); PHOSPHORUS, SERUM 3.2 MG/DL (2.5-4.5); POTASSIUM, SERUM 3.7 MMOL/L (3.5-5.3); SODIUM, SERUM 147 MMOL/L (135-148)
[2016-06-19 04:34] LABS: BE (BASE EXCESS) -4.2 MEQ/L (0 +/- 2.5); CARBOXYHEMOGLOBIN 0.5 % (0-3); DEVICE VM; HCO3 (ACTUAL BICARBONATE) 22.3 MEQ/L (23-27); HEMOBLOGIN CONTENT 13.6 G/DL (14-18); INSTRUMENT SERIAL # 11843; METHEMOGLOBIN 0.7 % (0-3); O2 CONTENT 18.2 VOL% (18-24); OPERATOR ID 13744; PCO2 (CO2 TENSION) 46 MMHG (35-45); PO2 (O2 TENSION) 89 MMHG (79-93); SAMPLE Arterial
[2016-06-19 09:09] LABS: ALBUMIN 3.4 G/DL (3.5-5.0); DIRECT BILIRUBIN 0.1 MG/DL (0.0-0.4); INDIRECT BILIRUBIN(NOT ORDER) 0.3 MG/DL (0.1-0.9); TOTAL BILIRUBIN 0.4 MG/DL (0-1.2); TOTAL PROTEIN 6.1 G/DL (6.0-8.5)
[2016-06-19 12:06] LABS: HEMATOCRIT 37.9 % (40.0-51.0); HEMOGLOBIN 12.6 g/dL (13.6-17.8); MEAN CORPUS HGB CONC 33.2 g/dL (32.0-36.0); MEAN CORPUSCULAR HEMOGLOB 28.3 pg (26.0-34.0); MEAN CORPUSCULAR VOLUME 85.2 fL (80-100); MEAN PLATELET VOLUME 10.4 fL (9.2-13.0); PLATELET COUNT 218 10/3/uL (150-400); RBC DISTRIBUTION WIDTH 14.6 % (12.0-16.0); RED CELL COUNT 4.45 10/6/uL (4.7-6.1)
[2016-06-19 12:07] LABS: MANUAL DIFF YES %; WHITE BLOOD CELLS 25.6 10/3/uL (4.5-10.5)
[2016-06-19 12:30] LABS: LYMPHOCYTES 2 %; LYMPHOCYTES ABSOLUTE (CALC) 0.51 10/3/uL (0.67-4.30); MONOCYTES 6 %; MONOCYTES ABSOLUTE (CALC) 1.54 10/3/uL (0.21-1.20); NEUTROPHILS ABSOLUTE (CALC) 23.55 10/3/uL (2.02-8.40); PLATELET ESTIMATE ADQ (ADEQUATE); RBC MORPHOLOGY NORM (NORMAL); SEGMENTED NEUTROPHIL (0) 92 %; TOTAL NUCLEATED CELLS 100
[2016-06-19 16:29] LABS: HEMATOCRIT 34.4 % (40.0-51.0); HEMOGLOBIN 11.5 g/dL (13.6-17.8)
[2016-06-19 16:34] LABS: POTASSIUM, SERUM 4.2 MMOL/L (3.5-5.3)
[2016-06-19 18:22] LABS: CALCIUM, SERUM 8.3 MG/DL (8.5-10.4); CHLORIDE, SERUM 104 MMOL/L (96-112); CO2 (CARBON DIOXIDE) 24 MMOL/L (24-34)
[2016-06-19 18:24] LABS: BUN (BLOOD UREA NITROGEN) 36 MG/DL (6-23); CREATININE 4.22 MG/DL (0.70-1.30); GFR AFRICAN AMERICAN 15 ML/MIN (>=60); GFR NON AFRICAN AMERICAN 13 ML/MIN (>=60); GLUCOSE, SERUM 82 MG/DL (60-99); SODIUM, SERUM 139 MMOL/L (135-148)
[2016-06-20 03:35] LABS: BASOPHILS 0.1 %; BASOPHILS ABSOLUTE 0.01 10/3/uL (0.0-0.16); EOSINOPHILS 0 %; HEMATOCRIT 32.9 % (40.0-51.0); HEMOGLOBIN 11.1 g/dL (13.6-17.8); IMMATURE GRANULOCYTES 0.5 %; LYMPHOCYTES 4.9 %; LYMPHOCYTES ABSOLUTE 0.98 10/3/uL (0.67-4.30); MEAN CORPUS HGB CONC 33.7 g/dL (32.0-36.0); MEAN CORPUSCULAR HEMOGLOB 28.8 pg (26.0-34.0); MEAN CORPUSCULAR VOLUME 85.5 fL (80-100); MEAN PLATELET VOLUME 9.1 fL (9.2-13.0); MONOCYTES 11.4 %; MONOCYTES ABSOLUTE 2.26 10/3/uL (0.21-1.20); NEUTROPHILS 83.1 %; NEUTROPHILS ABSOLUTE 16.53 10/3/uL (2.02-8.40); RBC DISTRIBUTION WIDTH 14.6 % (12.0-16.0); RED CELL COUNT 3.85 10/6/uL (4.7-6.1); WHITE BLOOD CELLS 19.9 10/3/uL (4.5-10.5)
[2016-06-20 03:37] LABS: MANUAL DIFF NO %; PLATELET COUNT 147 10/3/uL (150-400)
[2016-06-20 03:50] LABS: ALBUMIN 3.1 G/DL (3.5-5.0); CALCIUM, SERUM 7.8 MG/DL (8.5-10.4); CHLORIDE, SERUM 101 MMOL/L (96-112); CO2 (CARBON DIOXIDE) 25 MMOL/L (24-34); POTASSIUM, SERUM 4.5 MMOL/L (3.5-5.3); SODIUM, SERUM 138 MMOL/L (135-148)
[2016-06-20 03:58] LABS: BUN (BLOOD UREA NITROGEN) 44 MG/DL (6-23); CREATININE 5.42 MG/DL (0.70-1.30); GFR AFRICAN AMERICAN 11 ML/MIN (>=60); GFR NON AFRICAN AMERICAN 10 ML/MIN (>=60); GLUCOSE, SERUM 171 MG/DL (60-99); PHOSPHORUS, SERUM 6.5 MG/DL (2.5-4.5)
[2016-06-20 09:05] LABS: BE (BASE EXCESS) -3.2 MEQ/L (0 +/- 2.5); CARBOXYHEMOGLOBIN 0.1 % (0-3); DEVICE NC; HCO3 (ACTUAL BICARBONATE) 23.3 MEQ/L (23-27); HEMOBLOGIN CONTENT 12.5 G/DL (14-18); INSTRUMENT SERIAL # 11843; METHEMOGLOBIN 0.6 % (0-3); O2 CONTENT 16.3 VOL% (18-24); OPERATOR ID 19104; PCO2 (CO2 TENSION) 48 MMHG (35-45); PO2 (O2 TENSION) 75 MMHG (79-93); SAMPLE Arterial; pH 7.31 (7.37-7.43)
[2016-06-20 09:29] LABS: A/G RATIO 1.1 (0.7-1.9); ALBUMIN 3.2 G/DL (3.5-5.0); ALKALINE PHOSPHATASE 41 U/L (45-117); BUN (BLOOD UREA NITROGEN) 45 MG/DL (6-23); CALCIUM, SERUM 7.9 MG/DL (8.5-10.4); CHLORIDE, SERUM 99 MMOL/L (96-112); CO2 (CARBON DIOXIDE) 25 MMOL/L (24-34); GLUCOSE, SERUM 190 MG/DL (60-99); PHOSPHORUS, SERUM 7.3 MG/DL (2.5-4.5); POTASSIUM, SERUM 4.6 MMOL/L (3.5-5.3); SGOT(AST) 33 U/L (5-40); SGPT(ALT) 12 U/L (5-65); SODIUM, SERUM 136 MMOL/L (135-148); TOTAL BILIRUBIN 0.4 MG/DL (0-1.2)
[2016-06-20 09:32] LABS: CREATININE 6.13 MG/DL (0.70-1.30); GFR AFRICAN AMERICAN 10 ML/MIN (>=60); GFR NON AFRICAN AMERICAN 8 ML/MIN (>=60); GLOBULIN 2.8 G/DL (2.5-4.1)
[2016-06-20 22:53] LABS: BASOPHILS 0.1 %; BASOPHILS ABSOLUTE 0.02 10/3/uL (0.0-0.16); EOSINOPHILS 0 %; HEMATOCRIT 32.8 % (40.0-51.0); IMMATURE GRANULOCYTES 0.7 %; IMMATURE GRANULOCYTES ABSOLUTE 0.15 10/3/uL (0.0-0.11); LYMPHOCYTES ABSOLUTE 0.67 10/3/uL (0.67-4.30); MEAN CORPUS HGB CONC 33.5 g/dL (32.0-36.0); MEAN CORPUSCULAR HEMOGLOB 29.1 pg (26.0-34.0); MEAN CORPUSCULAR VOLUME 86.8 fL (80-100); MEAN PLATELET VOLUME 9.6 fL (9.2-13.0); MONOCYTES 12.9 %; MONOCYTES ABSOLUTE 2.87 10/3/uL (0.21-1.20); NEUTROPHILS 83.3 %; NEUTROPHILS ABSOLUTE 18.61 10/3/uL (2.02-8.40); PLATELET COUNT 137 10/3/uL (150-400); RED CELL COUNT 3.78 10/6/uL (4.7-6.1); WHITE BLOOD CELLS 22.3 10/3/uL (4.5-10.5)
[2016-06-20 22:54] LABS: MANUAL DIFF NO %
[2016-06-20 22:58] LABS: BUN (BLOOD UREA NITROGEN) 33 MG/DL (6-23); CHLORIDE, SERUM 103 MMOL/L (96-112); CO2 (CARBON DIOXIDE) 23 MMOL/L (24-34); CREATININE 4.89 MG/DL (0.70-1.30); GFR AFRICAN AMERICAN 13 ML/MIN (>=60); GFR NON AFRICAN AMERICAN 11 ML/MIN (>=60); GLUCOSE, SERUM 151 MG/DL (60-99); POTASSIUM, SERUM 4.5 MMOL/L (3.5-5.3); SODIUM, SERUM 138 MMOL/L (135-148)
[2016-06-20 22:59] LABS: CALCIUM, SERUM 5.9 MG/DL (8.5-10.4)
[2016-06-21 04:00] LABS: BASOPHILS 0.1 %; BASOPHILS ABSOLUTE 0.01 10/3/uL (0.0-0.16); EOSINOPHILS 0 %; HEMATOCRIT 31.6 % (40.0-51.0); HEMOGLOBIN 10.6 g/dL (13.6-17.8); IMMATURE GRANULOCYTES 0.5 %; IMMATURE GRANULOCYTES ABSOLUTE 0.09 10/3/uL (0.0-0.11); LYMPHOCYTES 4.4 %; LYMPHOCYTES ABSOLUTE 0.83 10/3/uL (0.67-4.30); MEAN CORPUS HGB CONC 33.5 g/dL (32.0-36.0); MEAN CORPUSCULAR HEMOGLOB 29.2 pg (26.0-34.0); MEAN CORPUSCULAR VOLUME 87.1 fL (80-100); MEAN PLATELET VOLUME 9.5 fL (9.2-13.0); MONOCYTES 11.1 %; NEUTROPHILS 83.9 %; NEUTROPHILS ABSOLUTE 15.89 10/3/uL (2.02-8.40); PLATELET COUNT 123 10/3/uL (150-400); RED CELL COUNT 3.63 10/6/uL (4.7-6.1); WHITE BLOOD CELLS 18.9 10/3/uL (4.5-10.5)
[2016-06-21 04:01] LABS: MANUAL DIFF NO %
[2016-06-21 04:21] LABS: CHLORIDE, SERUM 102 MMOL/L (96-112); CO2 (CARBON DIOXIDE) 23 MMOL/L (24-34); GLUCOSE, SERUM 157 MG/DL (60-99); POTASSIUM, SERUM 4.5 MMOL/L (3.5-5.3); SODIUM, SERUM 137 MMOL/L (135-148)
[2016-06-21 04:22] LABS: BUN (BLOOD UREA NITROGEN) 28 MG/DL (6-23); CALCIUM, SERUM 6.2 MG/DL (8.5-10.4); CREATININE 4.25 MG/DL (0.70-1.30); GFR AFRICAN AMERICAN 15 ML/MIN (>=60); GFR NON AFRICAN AMERICAN 13 ML/MIN (>=60); PHOSPHORUS, SERUM 3.5 MG/DL (2.5-4.5)
[2016-06-21 05:13] LABS: PROCALCITONIN 1.61 ng/mL (<0.5)
[2016-06-21 06:51] LABS: BE (BASE EXCESS) -4.9 MEQ/L (0 +/- 2.5); CARBOXYHEMOGLOBIN 0.3 % (0-3); DEVICE NC; HCO3 (ACTUAL BICARBONATE) 19.9 MEQ/L (23-27); HEMOBLOGIN CONTENT 10.9 G/DL (14-18); INSTRUMENT SERIAL # 11843; METHEMOGLOBIN 0.5 % (0-3); O2 CONTENT 14.8 VOL% (18-24); OPERATOR ID 32193; PCO2 (CO2 TENSION) 36 MMHG (35-45); PO2 (O2 TENSION) 96 MMHG (79-93); SAMPLE Arterial; pH 7.36 (7.37-7.43)
[2016-06-21 10:23] LABS: BASOPHILS 0.1 %; BASOPHILS ABSOLUTE 0.01 10/3/uL (0.0-0.16); EOSINOPHILS 0.1 %; EOSINOPHILS ABSOLUTE 0.01 10/3/uL (0.0-0.53); HEMATOCRIT 30.1 % (40.0-51.0); HEMOGLOBIN 9.9 g/dL (13.6-17.8); IMMATURE GRANULOCYTES 0.3 %; IMMATURE GRANULOCYTES ABSOLUTE 0.04 10/3/uL (0.0-0.11); LYMPHOCYTES 3.6 %; LYMPHOCYTES ABSOLUTE 0.54 10/3/uL (0.67-4.30); MEAN CORPUS HGB CONC 32.9 g/dL (32.0-36.0); MEAN CORPUSCULAR HEMOGLOB 28.3 pg (26.0-34.0); MEAN PLATELET VOLUME 9.8 fL (9.2-13.0); MONOCYTES 10.5 %; MONOCYTES ABSOLUTE 1.59 10/3/uL (0.21-1.20); NEUTROPHILS 85.4 %; NEUTROPHILS ABSOLUTE 12.98 10/3/uL (2.02-8.40); PLATELET COUNT 110 10/3/uL (150-400); RBC DISTRIBUTION WIDTH 15.2 % (12.0-16.0); WHITE BLOOD CELLS 15.2 10/3/uL (4.5-10.5)
[2016-06-21 10:24] LABS: MANUAL DIFF NO %
[2016-06-21 10:25] LABS: CHLORIDE, SERUM 105 MMOL/L (96-112); CO2 (CARBON DIOXIDE) 24 MMOL/L (24-34); CREATININE 3.77 MG/DL (0.70-1.30); GFR AFRICAN AMERICAN 18 ML/MIN (>=60); GFR NON AFRICAN AMERICAN 15 ML/MIN (>=60); GLUCOSE, SERUM 165 MG/DL (60-99); POTASSIUM, SERUM 4.3 MMOL/L (3.5-5.3); SODIUM, SERUM 140 MMOL/L (135-148)
[2016-06-21 10:27] LABS: BUN (BLOOD UREA NITROGEN) 24 MG/DL (6-23)
[2016-06-21 16:39] LABS: BASOPHILS 0.1 %; BASOPHILS ABSOLUTE 0.01 10/3/uL (0.0-0.16); EOSINOPHILS 0.2 %; EOSINOPHILS ABSOLUTE 0.03 10/3/uL (0.0-0.53); HEMATOCRIT 29.8 % (40.0-51.0); HEMOGLOBIN 9.9 g/dL (13.6-17.8); IMMATURE GRANULOCYTES 0.2 %; IMMATURE GRANULOCYTES ABSOLUTE 0.03 10/3/uL (0.0-0.11); LYMPHOCYTES 4.4 %; LYMPHOCYTES ABSOLUTE 0.64 10/3/uL (0.67-4.30); MEAN CORPUS HGB CONC 33.2 g/dL (32.0-36.0); MEAN CORPUSCULAR HEMOGLOB 28.6 pg (26.0-34.0); MEAN CORPUSCULAR VOLUME 86.1 fL (80-100); MEAN PLATELET VOLUME 9.8 fL (9.2-13.0); MONOCYTES 12.6 %; MONOCYTES ABSOLUTE 1.82 10/3/uL (0.21-1.20); NEUTROPHILS 82.5 %; NEUTROPHILS ABSOLUTE 11.88 10/3/uL (2.02-8.40); PLATELET COUNT 121 10/3/uL (150-400); RBC DISTRIBUTION WIDTH 15.3 % (12.0-16.0); RED CELL COUNT 3.46 10/6/uL (4.7-6.1); WHITE BLOOD CELLS 14.4 10/3/uL (4.5-10.5)
[2016-06-21 16:40] LABS: MANUAL DIFF NO %
[2016-06-21 16:52] LABS: BUN (BLOOD UREA NITROGEN) 21 MG/DL (6-23); CALCIUM, SERUM 7.1 MG/DL (8.5-10.4); CHLORIDE, SERUM 103 MMOL/L (96-112); CO2 (CARBON DIOXIDE) 24 MMOL/L (24-34); POTASSIUM, SERUM 4.2 MMOL/L (3.5-5.3); SODIUM, SERUM 138 MMOL/L (135-148)
[2016-06-21 16:53] LABS: CREATININE 3.15 MG/DL (0.70-1.30); GFR AFRICAN AMERICAN 22 ML/MIN (>=60); GFR NON AFRICAN AMERICAN 19 ML/MIN (>=60); GLUCOSE, SERUM 131 MG/DL (60-99); PHOSPHORUS, SERUM 2.5 MG/DL (2.5-4.5)
[2016-06-21 22:53] LABS: BASOPHILS 0.1 %; BASOPHILS ABSOLUTE 0.01 10/3/uL (0.0-0.16); EOSINOPHILS 0.5 %; EOSINOPHILS ABSOLUTE 0.06 10/3/uL (0.0-0.53); HEMATOCRIT 28.1 % (40.0-51.0); HEMOGLOBIN 9.4 g/dL (13.6-17.8); IMMATURE GRANULOCYTES 0.3 %; IMMATURE GRANULOCYTES ABSOLUTE 0.04 10/3/uL (0.0-0.11); LYMPHOCYTES ABSOLUTE 0.53 10/3/uL (0.67-4.30); MEAN CORPUS HGB CONC 33.5 g/dL (32.0-36.0); MEAN CORPUSCULAR HEMOGLOB 28.9 pg (26.0-34.0); MEAN CORPUSCULAR VOLUME 86.5 fL (80-100); MEAN PLATELET VOLUME 9.9 fL (9.2-13.0); MONOCYTES 12.5 %; MONOCYTES ABSOLUTE 1.65 10/3/uL (0.21-1.20); NEUTROPHILS 82.6 %; NEUTROPHILS ABSOLUTE 10.92 10/3/uL (2.02-8.40); PLATELET COUNT 126 10/3/uL (150-400); RBC DISTRIBUTION WIDTH 15.3 % (12.0-16.0); RED CELL COUNT 3.25 10/6/uL (4.7-6.1); WHITE BLOOD CELLS 13.2 10/3/uL (4.5-10.5)
[2016-06-21 22:54] LABS: MANUAL DIFF NO %
[2016-06-21 23:03] LABS: BUN (BLOOD UREA NITROGEN) 19 MG/DL (6-23); CALCIUM, SERUM 7.2 MG/DL (8.5-10.4); CHLORIDE, SERUM 103 MMOL/L (96-112); CO2 (CARBON DIOXIDE) 25 MMOL/L (24-34); CREATININE 2.94 MG/DL (0.70-1.30); GFR AFRICAN AMERICAN 24 ML/MIN (>=60); GFR NON AFRICAN AMERICAN 21 ML/MIN (>=60); GLUCOSE, SERUM 136 MG/DL (60-99); SODIUM, SERUM 140 MMOL/L (135-148)
[2016-06-22 01:12] LABS: PHOSPHORUS, SERUM 2.6 MG/DL (2.5-4.5)
[2016-06-22 03:32] LABS: BE (BASE EXCESS) -3.4 MEQ/L (0 +/- 2.5); CARBOXYHEMOGLOBIN 0.3 % (0-3); DEVICE NC; HCO3 (ACTUAL BICARBONATE) 21.4 MEQ/L (23-27); INSTRUMENT SERIAL # 11843; METHEMOGLOBIN 0.5 % (0-3); O2 CONTENT 14.7 VOL% (18-24); OPERATOR ID 32193; PCO2 (CO2 TENSION) 37 MMHG (35-45); PO2 (O2 TENSION) 83 MMHG (79-93); SAMPLE Arterial; pH 7.38 (7.37-7.43)
[2016-06-22 04:19] LABS: BASOPHILS 0.1 %; BASOPHILS ABSOLUTE 0.01 10/3/uL (0.0-0.16); EOSINOPHILS 0.7 %; EOSINOPHILS ABSOLUTE 0.09 10/3/uL (0.0-0.53); HEMOGLOBIN 9.7 g/dL (13.6-17.8); IMMATURE GRANULOCYTES 0.4 %; IMMATURE GRANULOCYTES ABSOLUTE 0.05 10/3/uL (0.0-0.11); LYMPHOCYTES 6.7 %; LYMPHOCYTES ABSOLUTE 0.82 10/3/uL (0.67-4.30); MANUAL DIFF NO %; MEAN CORPUS HGB CONC 33.4 g/dL (32.0-36.0); MEAN CORPUSCULAR HEMOGLOB 29.2 pg (26.0-34.0); MEAN CORPUSCULAR VOLUME 87.3 fL (80-100); MEAN PLATELET VOLUME 9.2 fL (9.2-13.0); MONOCYTES 14.9 %; MONOCYTES ABSOLUTE 1.82 10/3/uL (0.21-1.20); NEUTROPHILS 77.2 %; NEUTROPHILS ABSOLUTE 9.46 10/3/uL (2.02-8.40); PLATELET COUNT 124 10/3/uL (150-400); RBC DISTRIBUTION WIDTH 15.3 % (12.0-16.0); RED CELL COUNT 3.32 10/6/uL (4.7-6.1); WHITE BLOOD CELLS 12.3 10/3/uL (4.5-10.5)
[2016-06-22 04:30] LABS: BUN (BLOOD UREA NITROGEN) 18 MG/DL (6-23); CALCIUM, SERUM 7.2 MG/DL (8.5-10.4); CHLORIDE, SERUM 103 MMOL/L (96-112); CO2 (CARBON DIOXIDE) 23 MMOL/L (24-34); CREATININE 2.69 MG/DL (0.70-1.30); GFR AFRICAN AMERICAN 27 ML/MIN (>=60); GFR NON AFRICAN AMERICAN 23 ML/MIN (>=60); GLUCOSE, SERUM 124 MG/DL (60-99); PHOSPHORUS, SERUM 2.4 MG/DL (2.5-4.5); POTASSIUM, SERUM 3.8 MMOL/L (3.5-5.3); SODIUM, SERUM 141 MMOL/L (135-148)
[2016-06-22 10:54] LABS: BASOPHILS 0.1 %; BASOPHILS ABSOLUTE 0.01 10/3/uL (0.0-0.16); EOSINOPHILS 1.3 %; EOSINOPHILS ABSOLUTE 0.16 10/3/uL (0.0-0.53); HEMATOCRIT 29.5 % (40.0-51.0); HEMOGLOBIN 9.6 g/dL (13.6-17.8); IMMATURE GRANULOCYTES 0.2 %; IMMATURE GRANULOCYTES ABSOLUTE 0.02 10/3/uL (0.0-0.11); LYMPHOCYTES 4.8 %; LYMPHOCYTES ABSOLUTE 0.58 10/3/uL (0.67-4.30); MEAN CORPUS HGB CONC 32.5 g/dL (32.0-36.0); MEAN CORPUSCULAR HEMOGLOB 28.1 pg (26.0-34.0); MEAN CORPUSCULAR VOLUME 86.3 fL (80-100); MEAN PLATELET VOLUME 9.6 fL (9.2-13.0); MONOCYTES 15.1 %; MONOCYTES ABSOLUTE 1.83 10/3/uL (0.21-1.20); NEUTROPHILS 78.5 %; NEUTROPHILS ABSOLUTE 9.53 10/3/uL (2.02-8.40); PLATELET COUNT 146 10/3/uL (150-400); RBC DISTRIBUTION WIDTH 15.5 % (12.0-16.0); RED CELL COUNT 3.42 10/6/uL (4.7-6.1); WHITE BLOOD CELLS 12.1 10/3/uL (4.5-10.5)
[2016-06-22 10:57] LABS: MANUAL DIFF NO %
[2016-06-22 11:06] LABS: BUN (BLOOD UREA NITROGEN) 16 MG/DL (6-23); CALCIUM, SERUM 7.4 MG/DL (8.5-10.4); CHLORIDE, SERUM 103 MMOL/L (96-112); CO2 (CARBON DIOXIDE) 25 MMOL/L (24-34); GFR AFRICAN AMERICAN 29 ML/MIN (>=60); GFR NON AFRICAN AMERICAN 25 ML/MIN (>=60); GLUCOSE, SERUM 138 MG/DL (60-99); POTASSIUM, SERUM 3.9 MMOL/L (3.5-5.3); SODIUM, SERUM 139 MMOL/L (135-148)
[2016-06-22 17:55] LABS: BASOPHILS 0.1 %; BASOPHILS ABSOLUTE 0.01 10/3/uL (0.0-0.16); EOSINOPHILS 1.4 %; EOSINOPHILS ABSOLUTE 0.18 10/3/uL (0.0-0.53); HEMATOCRIT 29.8 % (40.0-51.0); HEMOGLOBIN 9.7 g/dL (13.6-17.8); IMMATURE GRANULOCYTES 0.2 %; IMMATURE GRANULOCYTES ABSOLUTE 0.02 10/3/uL (0.0-0.11); LYMPHOCYTES 10.5 %; MEAN CORPUS HGB CONC 32.6 g/dL (32.0-36.0); MEAN CORPUSCULAR VOLUME 86.1 fL (80-100); MEAN PLATELET VOLUME 9.2 fL (9.2-13.0); MONOCYTES 6.8 %; MONOCYTES ABSOLUTE 0.84 10/3/uL (0.21-1.20); NEUTROPHILS ABSOLUTE 10.08 10/3/uL (2.02-8.40); PLATELET COUNT 170 10/3/uL (150-400); RBC DISTRIBUTION WIDTH 15.5 % (12.0-16.0); RED CELL COUNT 3.46 10/6/uL (4.7-6.1); WHITE BLOOD CELLS 12.4 10/3/uL (4.5-10.5)
[2016-06-22 17:58] LABS: MANUAL DIFF NO %
[2016-06-22 18:15] LABS: BUN (BLOOD UREA NITROGEN) 17 MG/DL (6-23); CALCIUM, SERUM 7.7 MG/DL (8.5-10.4); CHLORIDE, SERUM 104 MMOL/L (96-112); CO2 (CARBON DIOXIDE) 23 MMOL/L (24-34); CREATININE 2.39 MG/DL (0.70-1.30); GFR AFRICAN AMERICAN 31 ML/MIN (>=60); GFR NON AFRICAN AMERICAN 26 ML/MIN (>=60); GLUCOSE, SERUM 152 MG/DL (60-99); PHOSPHORUS, SERUM 1.8 MG/DL (2.5-4.5); POTASSIUM, SERUM 3.8 MMOL/L (3.5-5.3); SODIUM, SERUM 138 MMOL/L (135-148)
[2016-06-22 21:55] LABS: BASOPHILS 0.2 %; BASOPHILS ABSOLUTE 0.02 10/3/uL (0.0-0.16); EOSINOPHILS ABSOLUTE 0.12 10/3/uL (0.0-0.53); HEMATOCRIT 29.1 % (40.0-51.0); HEMOGLOBIN 9.4 g/dL (13.6-17.8); IMMATURE GRANULOCYTES 0.2 %; IMMATURE GRANULOCYTES ABSOLUTE 0.03 10/3/uL (0.0-0.11); LYMPHOCYTES 10.5 %; LYMPHOCYTES ABSOLUTE 1.28 10/3/uL (0.67-4.30); MEAN CORPUS HGB CONC 32.3 g/dL (32.0-36.0); MEAN CORPUSCULAR HEMOGLOB 28.2 pg (26.0-34.0); MEAN CORPUSCULAR VOLUME 87.4 fL (80-100); MEAN PLATELET VOLUME 9.3 fL (9.2-13.0); MONOCYTES 8.5 %; MONOCYTES ABSOLUTE 1.04 10/3/uL (0.21-1.20); NEUTROPHILS 79.6 %; NEUTROPHILS ABSOLUTE 9.71 10/3/uL (2.02-8.40); PLATELET COUNT 165 10/3/uL (150-400); RBC DISTRIBUTION WIDTH 15.4 % (12.0-16.0); RED CELL COUNT 3.33 10/6/uL (4.7-6.1); WHITE BLOOD CELLS 12.2 10/3/uL (4.5-10.5)
[2016-06-22 21:56] LABS: MANUAL DIFF NO %
[2016-06-22 22:09] LABS: BUN (BLOOD UREA NITROGEN) 16 MG/DL (6-23); CALCIUM, SERUM 7.6 MG/DL (8.5-10.4); CHLORIDE, SERUM 102 MMOL/L (96-112); CO2 (CARBON DIOXIDE) 27 MMOL/L (24-34); CREATININE 2.41 MG/DL (0.70-1.30); GFR AFRICAN AMERICAN 30 ML/MIN (>=60); GFR NON AFRICAN AMERICAN 26 ML/MIN (>=60); GLUCOSE, SERUM 154 MG/DL (60-99); POTASSIUM, SERUM 4.4 MMOL/L (3.5-5.3); SODIUM, SERUM 140 MMOL/L (135-148)
[2016-06-23 03:29] LABS: BE (BASE EXCESS) -1.9 MEQ/L (0 +/- 2.5); CARBOXYHEMOGLOBIN 0.3 % (0-3); DEVICE NC; HCO3 (ACTUAL BICARBONATE) 22.3 MEQ/L (23-27); HEMOBLOGIN CONTENT 10.9 G/DL (14-18); INSTRUMENT SERIAL # 11843; METHEMOGLOBIN 0.5 % (0-3); O2 CONTENT 14.5 VOL% (18-24); OPERATOR ID 31061; PCO2 (CO2 TENSION) 36 MMHG (35-45); PO2 (O2 TENSION) 80 MMHG (79-93); SAMPLE Arterial; pH 7.41 (7.37-7.43)
[2016-06-23 03:30] LABS: ALLENS TEST Pos
[2016-06-23 03:39] LABS: BASOPHILS 0.2 %; BASOPHILS ABSOLUTE 0.02 10/3/uL (0.0-0.16); EOSINOPHILS 2.6 %; HEMATOCRIT 30.4 % (40.0-51.0); HEMOGLOBIN 9.7 g/dL (13.6-17.8); IMMATURE GRANULOCYTES 0.3 %; IMMATURE GRANULOCYTES ABSOLUTE 0.03 10/3/uL (0.0-0.11); LYMPHOCYTES 7.5 %; LYMPHOCYTES ABSOLUTE 0.85 10/3/uL (0.67-4.30); MEAN CORPUS HGB CONC 31.9 g/dL (32.0-36.0); MEAN CORPUSCULAR HEMOGLOB 27.8 pg (26.0-34.0); MEAN CORPUSCULAR VOLUME 87.1 fL (80-100); MONOCYTES 15.5 %; MONOCYTES ABSOLUTE 1.76 10/3/uL (0.21-1.20); NEUTROPHILS 73.9 %; NEUTROPHILS ABSOLUTE 8.37 10/3/uL (2.02-8.40); PLATELET COUNT 152 10/3/uL (150-400); RBC DISTRIBUTION WIDTH 15.6 % (12.0-16.0); RED CELL COUNT 3.49 10/6/uL (4.7-6.1); WHITE BLOOD CELLS 11.3 10/3/uL (4.5-10.5)
[2016-06-23 03:40] LABS: MANUAL DIFF NO %
[2016-06-23 03:52] LABS: BUN (BLOOD UREA NITROGEN) 16 MG/DL (6-23); CALCIUM, SERUM 7.6 MG/DL (8.5-10.4); CHLORIDE, SERUM 105 MMOL/L (96-112); CO2 (CARBON DIOXIDE) 25 MMOL/L (24-34); CREATININE 2.36 MG/DL (0.70-1.30); GFR AFRICAN AMERICAN 31 ML/MIN (>=60); GFR NON AFRICAN AMERICAN 27 ML/MIN (>=60); GLUCOSE, SERUM 110 MG/DL (60-99); PHOSPHORUS, SERUM 3.4 MG/DL (2.5-4.5); POTASSIUM, SERUM 3.8 MMOL/L (3.5-5.3); SODIUM, SERUM 142 MMOL/L (135-148)
[2016-06-23 11:30] LABS: BASOPHILS 0.2 %; BASOPHILS ABSOLUTE 0.02 10/3/uL (0.0-0.16); EOSINOPHILS 3.7 %; EOSINOPHILS ABSOLUTE 0.42 10/3/uL (0.0-0.53); HEMATOCRIT 31.2 % (40.0-51.0); HEMOGLOBIN 10.3 g/dL (13.6-17.8); IMMATURE GRANULOCYTES 0.3 %; IMMATURE GRANULOCYTES ABSOLUTE 0.03 10/3/uL (0.0-0.11); LYMPHOCYTES 6.2 %; MEAN CORPUSCULAR HEMOGLOB 29.1 pg (26.0-34.0); MEAN CORPUSCULAR VOLUME 88.1 fL (80-100); MEAN PLATELET VOLUME 9.2 fL (9.2-13.0); MONOCYTES 13.7 %; MONOCYTES ABSOLUTE 1.55 10/3/uL (0.21-1.20); NEUTROPHILS 75.9 %; NEUTROPHILS ABSOLUTE 8.57 10/3/uL (2.02-8.40); PLATELET COUNT 182 10/3/uL (150-400); RBC DISTRIBUTION WIDTH 15.3 % (12.0-16.0); RED CELL COUNT 3.54 10/6/uL (4.7-6.1); WHITE BLOOD CELLS 11.3 10/3/uL (4.5-10.5)
[2016-06-23 11:32] LABS: MANUAL DIFF NO %
[2016-06-23 11:38] LABS: BUN (BLOOD UREA NITROGEN) 16 MG/DL (6-23); CALCIUM, SERUM 7.7 MG/DL (8.5-10.4); CHLORIDE, SERUM 105 MMOL/L (96-112); CO2 (CARBON DIOXIDE) 26 MMOL/L (24-34); GFR AFRICAN AMERICAN 34 ML/MIN (>=60); GFR NON AFRICAN AMERICAN 29 ML/MIN (>=60); GLUCOSE, SERUM 117 MG/DL (60-99); POTASSIUM, SERUM 4.4 MMOL/L (3.5-5.3); SODIUM, SERUM 139 MMOL/L (135-148)
[2016-06-23 11:45] LABS: INTERNATIONAL NORMAL RATI 1.3 UNITS (-); PROTIME (NOT ORD) 15.9 SEC (12.0-14.5)
[2016-06-23 17:19] LABS: BASOPHILS 0.3 %; BASOPHILS ABSOLUTE 0.03 10/3/uL (0.0-0.16); EOSINOPHILS 4.9 %; EOSINOPHILS ABSOLUTE 0.54 10/3/uL (0.0-0.53); HEMATOCRIT 30.2 % (40.0-51.0); HEMOGLOBIN 10.2 g/dL (13.6-17.8); IMMATURE GRANULOCYTES 0.4 %; IMMATURE GRANULOCYTES ABSOLUTE 0.04 10/3/uL (0.0-0.11); LYMPHOCYTES 7.7 %; LYMPHOCYTES ABSOLUTE 0.84 10/3/uL (0.67-4.30); MEAN CORPUS HGB CONC 33.8 g/dL (32.0-36.0); MEAN CORPUSCULAR HEMOGLOB 29.5 pg (26.0-34.0); MEAN CORPUSCULAR VOLUME 87.3 fL (80-100); MEAN PLATELET VOLUME 9.1 fL (9.2-13.0); MONOCYTES 16.7 %; MONOCYTES ABSOLUTE 1.83 10/3/uL (0.21-1.20); NEUTROPHILS ABSOLUTE 7.66 10/3/uL (2.02-8.40); PLATELET COUNT 205 10/3/uL (150-400); RBC DISTRIBUTION WIDTH 15.3 % (12.0-16.0); RED CELL COUNT 3.46 10/6/uL (4.7-6.1); WHITE BLOOD CELLS 10.9 10/3/uL (4.5-10.5)
[2016-06-23 17:20] LABS: MANUAL DIFF NO %
[2016-06-23 17:30] LABS: CALCIUM, SERUM 7.8 MG/DL (8.5-10.4); CHLORIDE, SERUM 103 MMOL/L (96-112); CO2 (CARBON DIOXIDE) 25 MMOL/L (24-34); GFR AFRICAN AMERICAN 24 ML/MIN (>=60); GFR NON AFRICAN AMERICAN 21 ML/MIN (>=60); GLUCOSE, SERUM 113 MG/DL (60-99); PHOSPHORUS, SERUM 3.1 MG/DL (2.5-4.5); POTASSIUM, SERUM 4.1 MMOL/L (3.5-5.3); SODIUM, SERUM 138 MMOL/L (135-148)
[2016-06-23 17:31] LABS: BUN (BLOOD UREA NITROGEN) 23 MG/DL (6-23); CREATININE 2.88 MG/DL (0.70-1.30)
[2016-06-24 03:58] LABS: BASOPHILS 0.2 %; BASOPHILS ABSOLUTE 0.02 10/3/uL (0.0-0.16); EOSINOPHILS ABSOLUTE 0.53 10/3/uL (0.0-0.53); HEMATOCRIT 30.5 % (40.0-51.0); HEMOGLOBIN 10.2 g/dL (13.6-17.8); IMMATURE GRANULOCYTES 0.4 %; IMMATURE GRANULOCYTES ABSOLUTE 0.04 10/3/uL (0.0-0.11); LYMPHOCYTES 9.5 %; MEAN CORPUS HGB CONC 33.4 g/dL (32.0-36.0); MEAN CORPUSCULAR HEMOGLOB 29.1 pg (26.0-34.0); MEAN CORPUSCULAR VOLUME 87.1 fL (80-100); MEAN PLATELET VOLUME 8.8 fL (9.2-13.0); MONOCYTES 18.6 %; MONOCYTES ABSOLUTE 1.96 10/3/uL (0.21-1.20); NEUTROPHILS 66.3 %; NEUTROPHILS ABSOLUTE 6.97 10/3/uL (2.02-8.40); PLATELET COUNT 206 10/3/uL (150-400); RBC DISTRIBUTION WIDTH 15.2 % (12.0-16.0); WHITE BLOOD CELLS 10.5 10/3/uL (4.5-10.5)
[2016-06-24 04:00] LABS: MANUAL DIFF NO %
[2016-06-24 04:02] LABS: INTERNATIONAL NORMAL RATI 1.3 UNITS (-); PROTIME (NOT ORD) 16.1 SEC (12.0-14.5)
[2016-06-24 04:17] LABS: A/G RATIO 0.8 (0.7-1.9); ALBUMIN 2.7 G/DL (3.5-5.0); CALCIUM, SERUM 7.7 MG/DL (8.5-10.4); CHLORIDE, SERUM 102 MMOL/L (96-112); CO2 (CARBON DIOXIDE) 23 MMOL/L (24-34); GLOBULIN 3.2 G/DL (2.5-4.1); GLUCOSE, SERUM 106 MG/DL (60-99); POTASSIUM, SERUM 3.9 MMOL/L (3.5-5.3); SGOT(AST) 26 U/L (5-40); SGPT(ALT) 12 U/L (5-65); SODIUM, SERUM 139 MMOL/L (135-148); TOTAL BILIRUBIN 0.7 MG/DL (0-1.2); TOTAL PROTEIN 5.9 G/DL (6.0-8.5)
[2016-06-24 04:19] LABS: ALKALINE PHOSPHATASE 62 U/L (45-117); BUN (BLOOD UREA NITROGEN) 32 MG/DL (6-23); CREATININE 3.87 MG/DL (0.70-1.30); GFR AFRICAN AMERICAN 17 ML/MIN (>=60); GFR NON AFRICAN AMERICAN 15 ML/MIN (>=60)
[2016-06-25 06:38] LABS: BASOPHILS 0.4 %; BASOPHILS ABSOLUTE 0.04 10/3/uL (0.0-0.16); EOSINOPHILS 5.5 %; EOSINOPHILS ABSOLUTE 0.58 10/3/uL (0.0-0.53); HEMATOCRIT 30.8 % (40.0-51.0); HEMOGLOBIN 10.4 g/dL (13.6-17.8); IMMATURE GRANULOCYTES 0.7 %; IMMATURE GRANULOCYTES ABSOLUTE 0.07 10/3/uL (0.0-0.11); LYMPHOCYTES 10.7 %; LYMPHOCYTES ABSOLUTE 1.13 10/3/uL (0.67-4.30); MANUAL DIFF NO %; MEAN CORPUS HGB CONC 33.8 g/dL (32.0-36.0); MEAN CORPUSCULAR HEMOGLOB 28.8 pg (26.0-34.0); MEAN CORPUSCULAR VOLUME 85.3 fL (80-100); MEAN PLATELET VOLUME 8.9 fL (9.2-13.0); MONOCYTES 12.5 %; MONOCYTES ABSOLUTE 1.31 10/3/uL (0.21-1.20); NEUTROPHILS 70.2 %; NEUTROPHILS ABSOLUTE 7.39 10/3/uL (2.02-8.40); PLATELET COUNT 296 10/3/uL (150-400); RBC DISTRIBUTION WIDTH 14.9 % (12.0-16.0); RED CELL COUNT 3.61 10/6/uL (4.7-6.1); WHITE BLOOD CELLS 10.5 10/3/uL (4.5-10.5)
[2016-06-25 06:51] LABS: ALBUMIN 2.6 G/DL (3.5-5.0); BUN (BLOOD UREA NITROGEN) 54 MG/DL (6-23); CALCIUM, SERUM 7.9 MG/DL (8.5-10.4); CHLORIDE, SERUM 103 MMOL/L (96-112); CO2 (CARBON DIOXIDE) 23 MMOL/L (24-34); GFR AFRICAN AMERICAN 11 ML/MIN (>=60); GFR NON AFRICAN AMERICAN 9 ML/MIN (>=60); GLUCOSE, SERUM 107 MG/DL (60-99); PHOSPHORUS, SERUM 5.2 MG/DL (2.5-4.5); POTASSIUM, SERUM 4.1 MMOL/L (3.5-5.3); SODIUM, SERUM 141 MMOL/L (135-148)
[2016-06-25 07:01] LABS: PROTIME (NOT ORD) 22.5 SEC (12.0-14.5)
[2016-06-25 10:42] LABS: HEPATITIS B SURFACE ANTIGEN NON-REACTIVE (NON-REACT)
[2016-06-25 11:09] LABS: HEPATITIS B CORE AB IGM NON-REACTIVE (NON-REAC); HEPATITIS C ANTIBODY NON-REACTIVE (NON-REACT)
[2016-06-25 11:10] LABS: HIV COMBO NON-REACTIVE (NON REAC)
[2016-06-25 11:11] LABS: HEP A ANTIBODY IGM NON-REACTIVE (NON-REACT)
[2016-06-26 06:52] LABS: INTERNATIONAL NORMAL RATI 2.1 UNITS (-); PROTIME (NOT ORD) 23.3 SEC (12.0-14.5)
[2016-06-26 07:00] LABS: ALBUMIN 2.6 G/DL (3.5-5.0); BUN (BLOOD UREA NITROGEN) 51 MG/DL (6-23); CALCIUM, SERUM 7.5 MG/DL (8.5-10.4); CHLORIDE, SERUM 102 MMOL/L (96-112); CO2 (CARBON DIOXIDE) 23 MMOL/L (24-34); GFR AFRICAN AMERICAN 11 ML/MIN (>=60); GFR NON AFRICAN AMERICAN 10 ML/MIN (>=60); GLUCOSE, SERUM 106 MG/DL (60-99); PHOSPHORUS, SERUM 4.9 MG/DL (2.5-4.5); POTASSIUM, SERUM 4.2 MMOL/L (3.5-5.3); SODIUM, SERUM 139 MMOL/L (135-148)
[2016-06-27 04:26] LABS: BASOPHILS 0.4 %; BASOPHILS ABSOLUTE 0.04 10/3/uL (0.0-0.16); EOSINOPHILS 4.7 %; EOSINOPHILS ABSOLUTE 0.52 10/3/uL (0.0-0.53); HEMATOCRIT 32.8 % (40.0-51.0); HEMOGLOBIN 10.9 g/dL (13.6-17.8); IMMATURE GRANULOCYTES ABSOLUTE 0.11 10/3/uL (0.0-0.11); LYMPHOCYTES 12.3 %; LYMPHOCYTES ABSOLUTE 1.37 10/3/uL (0.67-4.30); MEAN CORPUS HGB CONC 33.2 g/dL (32.0-36.0); MEAN CORPUSCULAR VOLUME 84.3 fL (80-100); MEAN PLATELET VOLUME 9.2 fL (9.2-13.0); MONOCYTES 11.9 %; MONOCYTES ABSOLUTE 1.33 10/3/uL (0.21-1.20); NEUTROPHILS 69.7 %; NEUTROPHILS ABSOLUTE 7.79 10/3/uL (2.02-8.40); RED CELL COUNT 3.89 10/6/uL (4.7-6.1); WHITE BLOOD CELLS 11.2 10/3/uL (4.5-10.5)
[2016-06-27 04:27] LABS: INTERNATIONAL NORMAL RATI 1.8 UNITS (-); PROTIME (NOT ORD) 20.9 SEC (12.0-14.5)
[2016-06-27 04:28] LABS: PLATELET COUNT 451 10/3/uL (150-400)
[2016-06-27 04:29] LABS: MANUAL DIFF NO %
[2016-06-27 04:30] LABS: ALBUMIN 2.7 G/DL (3.5-5.0); ALKALINE PHOSPHATASE 69 U/L (45-117); CALCIUM, SERUM 7.8 MG/DL (8.5-10.4); CHLORIDE, SERUM 104 MMOL/L (96-112); CO2 (CARBON DIOXIDE) 20 MMOL/L (24-34); DIRECT BILIRUBIN 0.2 MG/DL (0.0-0.4); GFR AFRICAN AMERICAN 10 ML/MIN (>=60); GFR NON AFRICAN AMERICAN 8 ML/MIN (>=60); GLUCOSE, SERUM 96 MG/DL (60-99); INDIRECT BILIRUBIN(NOT ORDER) 0.4 MG/DL (0.1-0.9); PHOSPHORUS, SERUM 5.4 MG/DL (2.5-4.5); POTASSIUM, SERUM 4.7 MMOL/L (3.5-5.3); SGOT(AST) 21 U/L (5-40); SGPT(ALT) 20 U/L (5-65); SODIUM, SERUM 141 MMOL/L (135-148); TOTAL BILIRUBIN 0.6 MG/DL (0-1.2); TOTAL PROTEIN 6.3 G/DL (6.0-8.5)
[2016-06-27 04:44] LABS: BUN (BLOOD UREA NITROGEN) 60 MG/DL (6-23); CREATININE 6.27 MG/DL (0.70-1.30)
[2016-06-28 08:37] LABS: INTERNATIONAL NORMAL RATI 1.9 UNITS (-); PROTIME (NOT ORD) 21.8 SEC (12.0-14.5)
[2016-06-28 08:39] LABS: BASOPHILS 0.2 %; BASOPHILS ABSOLUTE 0.02 10/3/uL (0.0-0.16); EOSINOPHILS 4.8 %; EOSINOPHILS ABSOLUTE 0.45 10/3/uL (0.0-0.53); HEMATOCRIT 35.3 % (40.0-51.0); HEMOGLOBIN 11.7 g/dL (13.6-17.8); IMMATURE GRANULOCYTES 1.1 %; LYMPHOCYTES 8.7 %; LYMPHOCYTES ABSOLUTE 0.82 10/3/uL (0.67-4.30); MEAN CORPUS HGB CONC 33.1 g/dL (32.0-36.0); MEAN CORPUSCULAR HEMOGLOB 28.6 pg (26.0-34.0); MEAN CORPUSCULAR VOLUME 86.3 fL (80-100); MEAN PLATELET VOLUME 8.8 fL (9.2-13.0); MONOCYTES 8.6 %; MONOCYTES ABSOLUTE 0.81 10/3/uL (0.21-1.20); NEUTROPHILS 76.6 %; NEUTROPHILS ABSOLUTE 7.21 10/3/uL (2.02-8.40); PLATELET COUNT 483 10/3/uL (150-400); RBC DISTRIBUTION WIDTH 14.6 % (12.0-16.0); RED CELL COUNT 4.09 10/6/uL (4.7-6.1); WHITE BLOOD CELLS 9.4 10/3/uL (4.5-10.5)
[2016-06-28 08:43] LABS: MANUAL DIFF NO %
[2016-06-28 08:47] LABS: ALBUMIN 3.2 G/DL (3.5-5.0); BUN (BLOOD UREA NITROGEN) 46 MG/DL (6-23); CALCIUM, SERUM 8.2 MG/DL (8.5-10.4); CHLORIDE, SERUM 99 MMOL/L (96-112); CO2 (CARBON DIOXIDE) 26 MMOL/L (24-34); CREATININE 5.19 MG/DL (0.70-1.30); GFR AFRICAN AMERICAN 12 ML/MIN (>=60); GFR NON AFRICAN AMERICAN 10 ML/MIN (>=60); GLUCOSE, SERUM 158 MG/DL (60-99); PHOSPHORUS, SERUM 5.4 MG/DL (2.5-4.5); POTASSIUM, SERUM 4.3 MMOL/L (3.5-5.3); SODIUM, SERUM 138 MMOL/L (135-148)
[2016-06-29 08:24] LABS: PROTIME (NOT ORD) 22.6 SEC (12.0-14.5)
[2016-06-29 08:27] LABS: ALBUMIN 3.1 G/DL (3.5-5.0); CALCIUM, SERUM 7.9 MG/DL (8.5-10.4); CHLORIDE, SERUM 100 MMOL/L (96-112); CO2 (CARBON DIOXIDE) 22 MMOL/L (24-34); PHOSPHORUS, SERUM 5.1 MG/DL (2.5-4.5); POTASSIUM, SERUM 4.7 MMOL/L (3.5-5.3); SODIUM, SERUM 136 MMOL/L (135-148)
[2016-06-29 08:28] LABS: BUN (BLOOD UREA NITROGEN) 60 MG/DL (6-23); CREATININE 5.74 MG/DL (0.70-1.30); GFR AFRICAN AMERICAN 11 ML/MIN (>=60); GFR NON AFRICAN AMERICAN 9 ML/MIN (>=60); GLUCOSE, SERUM 101 MG/DL (60-99)
[2016-06-30 05:18] LABS: INTERNATIONAL NORMAL RATI 2.1 UNITS (-); PROTIME (NOT ORD) 23.4 SEC (12.0-14.5)
[2016-06-30 10:09] LABS: BASOPHILS 0.3 %; BASOPHILS ABSOLUTE 0.04 10/3/uL (0.0-0.16); EOSINOPHILS 3.3 %; HEMATOCRIT 35.9 % (40.0-51.0); HEMOGLOBIN 12.1 g/dL (13.6-17.8); IMMATURE GRANULOCYTES 0.9 %; IMMATURE GRANULOCYTES ABSOLUTE 0.11 10/3/uL (0.0-0.11); LYMPHOCYTES 11.8 %; LYMPHOCYTES ABSOLUTE 1.41 10/3/uL (0.67-4.30); MEAN CORPUS HGB CONC 33.7 g/dL (32.0-36.0); MEAN CORPUSCULAR HEMOGLOB 28.9 pg (26.0-34.0); MEAN CORPUSCULAR VOLUME 85.7 fL (80-100); MEAN PLATELET VOLUME 9.1 fL (9.2-13.0); MONOCYTES 11.2 %; MONOCYTES ABSOLUTE 1.34 10/3/uL (0.21-1.20); NEUTROPHILS 72.5 %; NEUTROPHILS ABSOLUTE 8.66 10/3/uL (2.02-8.40); RBC DISTRIBUTION WIDTH 14.9 % (12.0-16.0); RED CELL COUNT 4.19 10/6/uL (4.7-6.1)
[2016-06-30 10:20] LABS: ALBUMIN 3.3 G/DL (3.5-5.0); BUN (BLOOD UREA NITROGEN) 68 MG/DL (6-23); CALCIUM, SERUM 7.9 MG/DL (8.5-10.4); CHLORIDE, SERUM 96 MMOL/L (96-112); CO2 (CARBON DIOXIDE) 24 MMOL/L (24-34); GFR AFRICAN AMERICAN 10 ML/MIN (>=60); GFR NON AFRICAN AMERICAN 9 ML/MIN (>=60); GLUCOSE, SERUM 76 MG/DL (60-99); PHOSPHORUS, SERUM 5.3 MG/DL (2.5-4.5); POTASSIUM, SERUM 4.5 MMOL/L (3.5-5.3); SODIUM, SERUM 137 MMOL/L (135-148)
[2016-06-30 10:24] LABS: MANUAL DIFF NO %; PLATELET COUNT 638 10/3/uL (150-400)
[2016-06-30] MEDS ORDERED: LIPITOR40 PO (15:35)
[2016-06-30] MEDS ORDERED: CORDARONE PO (15:38)
[2016-06-30] MEDS ORDERED: COREG6 PO (15:39)
[2016-06-30] MEDS ORDERED: C5 PO (15:42)
== END 2016-06-30 16:59 | disposition home or self-care (01) | DRG 216 ==
LOC: ER 10:28 → SSU2 10:33 → MIC 11:38 → 6NO 06-15 17:56 → SDC/OF 06-18 10:48 → CVICU 06-18 16:27 → 5NO 06-24 11:21
PROVIDERS: Hospitalist; Internal Medicine Cardiovascular Disease; Internal Medicine Nephrology; Nurse Practitioner Family; Thoracic Surgery (Cardiothoracic Vascular Surgery)
PROC: 4A023N7 Measurement of Cardiac Sampling and Pressure, Left Heart, Percutaneous Approach (ICD-10-PCS; principal; 2016-06-14)
PROC: B2111ZZ Fluoroscopy of Multiple Coronary Arteries using Low Osmolar Contrast (ICD-10-PCS; 2016-06-14)
PROC: B2151ZZ Fluoroscopy of Left Heart using Low Osmolar Contrast (ICD-10-PCS; 2016-06-14)
PROC: 02100Z9 Bypass Coronary Artery, One Artery from Left Internal Mammary, Open Approach (ICD-10-PCS; 2016-06-18)
PROC: 021209W Bypass Coronary Artery, Three Arteries from Aorta with Autologous Venous Tissue, Open Approach (ICD-10-PCS; 2016-06-18)
PROC: 06BP4ZZ Excision of Right Saphenous Vein, Percutaneous Endoscopic Approach (ICD-10-PCS; 2016-06-18)
PROC: 5A1221Z Performance of Cardiac Output, Continuous (ICD-10-PCS; 2016-06-18)
PROC: B246ZZ4 Ultrasonography of Right and Left Heart, Transesophageal (ICD-10-PCS; 2016-06-18)
PROC: 05H633Z Insertion of Infusion Device into Left Subclavian Vein, Percutaneous Approach (ICD-10-PCS; 2016-06-18)
PROC: 02RF08Z Replacement of Aortic Valve with Zooplastic Tissue, Open Approach (ICD-10-PCS; 2016-06-18 13:45)
PROC: 5A1D60Z (ICD-10-PCS; 2016-06-25)
PROC: 05HM33Z Insertion of Infusion Device into Right Internal Jugular Vein, Percutaneous Approach (ICD-10-PCS; 2016-06-27)
PROC: B543ZZA Ultrasonography of Right Jugular Veins, Guidance (ICD-10-PCS; 2016-06-27)
DX: I21.3 ST elevation (STEMI) myocardial infarction of unspecified site (principal); I46.2 Cardiac arrest due to underlying cardiac condition; N17.0 Acute kidney failure with tubular necrosis; I48.0 Paroxysmal atrial fibrillation; J98.11 Atelectasis; R00.1 Bradycardia, unspecified; I35.0 Nonrheumatic aortic (valve) stenosis; N18.3 Chronic kidney disease, stage 3 (moderate); E78.2 Mixed hyperlipidemia; I25.10 Atherosclerotic heart disease of native coronary artery without angina pectoris; T46.3X5A Adverse effect of coronary vasodilators, initial encounter; I12.9 Hypertensive chronic kidney disease with stage 1 through stage 4 chronic kidney disease, or unspecified chronic kidney disease; I95.81 Postprocedural hypotension; N99.0 Postprocedural (acute) (chronic) kidney failure
CPT/HCPCS: 36415; 36556; 36558; 36598; 71010; 71020; 76000; 76937; 80048; 80053; 80069; 80074; 80076; 81001; 82330; 82550; 82553; 82803; 82805; 82947; 82962; 83036; 83605; 83735; 84100; 84132; 84145; 84295; 84484; 85014; 85018; 85025; 85049; 85347; 85610; 85730; 86850; 86900; 86901; 86920; 87389; 87641; 88305; 88311; 93005; 93312; 93320; 93325; 93454; 93880; 94002; 94640; 94660; 94667; 94668; 94770; 99152; 99153; 99285; A9270-GY; C1713; C1750; C1751; C1769; C1781; C1894; C8929; G0257; J0461; J0583; J0610; J0690; J1644; J1940; J2150; J2250; J2260; J2370; J2405; J2440; J2550; J2720; J2795; J2930; J2997; J3010; J3475; J3480; P9045; P9047; P9059; Q9957; Q9967